=== PATIENT | female | born 1935 | race Caucasian/White ===

== ENCOUNTER 2022-08-30 05:55 | Emergency (ER) | payer MEDICARE, OTHER ==
[~2022-08-30] VITALS: Ht 165.1 cm; Wt 58.0 kg
--- NOTE | 2022-08-30 06:11 | ED General ---
General Stated Complaint: LEFT SIDE ML,NECK PAIN Source of Information: Patient (PT IS POOR HISTORIAN ESPECIALLY ABOUT PAST MEDICAL HISTORY) History of Present Illness Date Seen by Provider: Aug 30, 2022 Time Seen by Provider: 05:58 Initial Comments PT ARRIVES VIA EMS FROM [facility] PT'S MAIN COMPLAINT IS SHORTNESS OF BREATH, SHE IS NOT SURE HOW LONG IT HAS BEEN GOING ON, BUT STATES SHE DID NOT HAVE IT WHEN SHE WENT TO BED LAST NIGHT EMS REPORT THAT THEY WERE CALLED FOR PT WITH C/O TINGLING IN LEFT ARM SINCE WAKING AROUND 0430--PT DENIES THIS NOW. SHE DENIES ANY NUMBNESS OR TINGLING ANYWHERE, AND SHE DENIES ANY WEAKNESS TO HER ARMS OR LEGS. PT DENIES PAIN ANYWHERE SHE DENIES CHEST PAIN SHE DENIES HEADACHE SHE DENIES DIZZINESS SHE DENIES NAUSEA/VOMITING OR ABDOMINAL PAIN SHE DENIES SWELLING IN LEGS/FEET SHE DENIES COUGH SHE DENIES SWEATS OR CHILLS PT KNOWS SHE IS IN [place], KNOWS SHE IS IN A HOSPITAL, AND STATES THEY BROUGHT HER HERE BECAUSE SHE IS SHORT OF BREATH SHE HAS POOR MEMORY, AND DOES NOT KNOW DAY/MONTH/YEAR/SEASON/HOLIDAY. SHE DOES KNOW HER AGE AND . PT STATES SHE HAS HAD A "MINOR" STROKE IN THE PAST, BUT DOES NOT KNOW WHEN SHE ALSO STATES SHE HAS HAD BREAST CANCER AND HAD LEFT MASTECTOMY "A LONG TIME AGO" BUT DOES NOT RECALL IF SHE HAD CHEMO OR RADIATION. SHE STATES HER DR. IS DR. YOU[place] IN [place], BUT STATES SHE HASN'T SEEN A DR "IN A LONG TIME". PT DOES NOT KNOW ANY OF HER MEDICAL PROBLEMS OR ANY OF HER MEDICATIONS PER [facility] PAPERS, PT WAS ADMITTED TO [facility] 03/31/2022 HER LISTED DIAGNOSES ARE: -DEMENTIA -HTN -HYPERLIPIDEMIA -CAROTID DISEASE -ASTHMA -ANXIETY -LOW BACK PAIN -COPD -LEG PAIN -OSTEOARTHRITIS -LEFT BREAST REMOVED SHE IS DNR/DNI PCP: DR. HARVEY IS DR AT [facility] Allergies and Home Medications Allergies Coded Allergies: No Known Drug Allergies (Unverified , 08/30/22) Review of Systems Review of Systems Constitutional: no symptoms reported EENTM: no symptoms reported Respiratory: see HPI, short of breath Cardiovascular: no symptoms reported Gastrointestinal: no symptoms reported Genitourinary: no symptoms reported Musculoskeletal: no symptoms reported Skin: no symptoms reported Psychiatric/Neurological: See HPI Hematologic/Lymphatic: No Symptoms Reported Immunological/Allergic: no symptoms reported Past Lgguhel-Mklhul-Rvnfrz Hx Patient Social History Tobacco Use?: Yes Tobacco type used: Cigarettes Smoking Status: Former Smoker Use of E-Cig and/or Vaping dev: No Substance use?: No Alcohol Use?: No Past Medical History Surgeries: Yes (LEFT BREAST REMOVED) Breast Respiratory: Yes Asthma, COPD Cardiac: Yes (CAROTID DISEASE) High Cholesterol, Hypertension Neurological: Yes Dementia, Stroke Genitourinary: No Gastrointestinal: No Musculoskeletal: Yes (CHRONIC LEG PAIN ) Arthritis, Chronic Back Pain Endocrine: No HEENT: Yes Glaucoma Cancer: Yes Breast Did You Recieve Any Treatments: Yes What Type of Treatment Did You: Surgical Intervention PT HAS HAD LEFT MASECTOMY, BUT DOES NOT REMEMBER IF SHE HAS HAD CHEMO OR RADIATION. Psychosocial: Yes Anxiety Integumentary: No Blood Disorders: No Physical Exam Vital Signs Vital Signs - First Documented 08/30/22 05:55 Temp 36.6 Pulse 70 Resp 16 B/P (MAP) 187/100 (129) Pulse Ox 100 O2 Delivery Room Air Capillary Refill : Height, Weight, BMI Height: '" Weight: lbs. oz. kg; BMI Method: General Appearance: WD/WN, Other (PT IS SLIGHTLY DYSPNEIC ON ARRIVAL, BUT ABLE TO TALK IN FULL SENTENCES) Eyes: Bilateral Eye Normal Inspection, Bilateral Eye PERRL, Bilateral Eye EOMI HEENT: PERRL/EOMI, TMs Normal, Normal ENT Inspection, Pharynx Normal, Moist Mucous Membranes Neck: Normal Inspection; No Carotid Bruit, No JVD Respiratory: Normal Breath Sounds, No Accessory Muscle Use, No Respiratory Distress Cardiovascular: Regular Rate, Rhythm, No Edema, No JVD, No Murmur, Normal Peripheral Pulses Gastrointestinal: Normal Bowel Sounds, No Organomegaly, No Pulsatile Mass, Non Tender, Soft Back: No CVA Tenderness Extremity: Normal Capillary Refill, Normal Inspection, Normal Range of Motion, Non Tender, No Calf Tenderness, No Pedal Edema Neurologic/Psychiatric: Alert, No Motor/Sensory Deficits (GROSSLY INTACT. 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 ) Skin: Normal Color, Warm/Dry Focused Exam Lactate Level 08/30/22 06:10: Lactic Acid Level 1.66 Lactic Acid Level Laboratory Tests Test 08/30/22 06:10 Lactic Acid Level 1.66 MMOL/L (0.50-2.00) Progress/Results/Core Measures Suspected Sepsis SIRS Temperature: Pulse: Respiratory Rate: Laboratory Tests 08/30/22 06:10: White Blood Count 6.7 Blood Pressure / Mean: 08/30/22 06:10: Lactic Acid Level 1.66 Laboratory Tests 08/30/22 06:10: Creatinine 0.87, INR Comment 0.9, Platelet Count 235, Total Bilirubin 0.6 Results/Orders Lab Results Laboratory Tests Test 08/30/22 06:10 08/30/22 06:32 08/30/22 09:40 Range/Units White Blood Count 6.7 4.3-11.0 10^3/uL Red Blood Count 4.36 3.80-5.11 10^6/uL Hemoglobin 13.9 11.5-16.0 g/dL Hematocrit 41 35-52 % Mean Corpuscular Volume 95 80-99 fL Mean Corpuscular Hemoglobin 32 25-34 pg Mean Corpuscular Hemoglobin Concent 34 32-36 g/dL Red Cell Distribution Width 12.4 10.0-14.5 % Platelet Count 235 130-400 10^3/uL Mean Platelet Volume 11.2 9.0-12.2 fL Immature Granulocyte % (Auto) 0 % Neutrophils (%) (Auto) 58 42-75 % Lymphocytes (%) (Auto) 31 12-44 % Monocytes (%) (Auto) 8 0-12 % Eosinophils (%) (Auto) 3 0-10 % Basophils (%) (Auto) 1 0-10 % Neutrophils # (Auto) 3.9 1.8-7.8 10^3/uL Lymphocytes # (Auto) 2.1 1.0-4.0 10^3/uL Monocytes # (Auto) 0.5 0.0-1.0 10^3/uL Eosinophils # (Auto) 0.2 0.0-0.3 10^3/uL Basophils # (Auto) 0.0 0.0-0.1 10^3/uL Immature Granulocyte # (Auto) 0.0 0.0-0.1 10^3/uL Erythrocyte Sedimentation Rate 9 0-30 MM/HR Prothrombin Time 12.1 L 12.2-14.7 SEC INR Comment 0.9 0.8-1.4 Activated Partial Thromboplast Time 33 24-35 SEC D-Dimer 0.98 H 0.00-0.49 UG/ML Sodium Level 141 135-145 MMOL/L Potassium Level 4.0 3.6-5.0 MMOL/L Chloride Level 104 98-107 MMOL/L Carbon Dioxide Level 24 21-32 MMOL/L Anion Gap 13 5-14 MMOL/L Blood Urea Nitrogen 13 7-18 MG/DL Creatinine 0.87 0.60-1.30 MG/DL Estimat Glomerular Filtration Rate 65 BUN/Creatinine Ratio 15 Glucose Level 110 H 70-105 MG/DL Lactic Acid Level 1.66 0.50-2.00 MMOL/L Calcium Level 9.4 8.5-10.1 MG/DL Corrected Calcium 9.4 8.5-10.1 MG/DL Magnesium Level 1.7 1.6-2.4 MG/DL Total Bilirubin 0.6 0.1-1.0 MG/DL Aspartate Amino Transf (AST/SGOT) 27 5-34 U/L Alanine Aminotransferase (ALT/SGPT) 18 0-55 U/L Alkaline Phosphatase 60 40-136 U/L Total Creatine Kinase 47 29-168 U/L Creatine Kinase MB 1.0 <6.6 NG/ML Troponin I < 0.028 < 0.028 <0.028 NG/ML C-Reactive Protein High Sensitivity 0.18 0.00-0.50 MG/DL B-Type Natriuretic Peptide 32.9 <100.0 PG/ML Total Protein 7.4 6.4-8.2 GM/DL Albumin 4.0 3.2-4.5 GM/DL Influenza Type A (RT-PCR) Not Detected Not Detecte Influenza Type B (RT-PCR) Not Detected Not Detecte SARS-CoV-2 RNA (RT-PCR) Not Detected Not Detecte Urine Color YELLOW Urine Clarity CLEAR Urine pH 8.0 5-9 Urine Specific [place] 1.010 L 1.016-1.022 Urine Protein NEGATIVE NEGATIVE Urine Glucose (UA) NEGATIVE NEGATIVE Urine Ketones NEGATIVE NEGATIVE Urine Nitrite NEGATIVE NEGATIVE Urine Bilirubin NEGATIVE NEGATIVE Urine Urobilinogen 0.2 < = 1.0 MG/DL Urine Leukocyte Esterase 1+ H NEGATIVE Urine RBC (Auto) NEGATIVE NEGATIVE Urine RBC NONE /HPF Urine WBC 2-5 /HPF Urine Squamous Epithelial Cells NONE /HPF Urine Crystals NONE /LPF Urine Bacteria NEGATIVE /HPF Urine Casts NONE /LPF Urine Mucus NEGATIVE /LPF Urine Culture Indicated NO My Orders Orders - SHAW LEWIS DO Ed Iv/Invasive Line Start (08/30/22 06:02) Ekg Tracing (08/30/22 06:02) O2 (08/30/22 06:02) Monitor-Rhythm Ecg Trace Only (08/30/22 06:02) Ct Head Wo-R/O Stroke (08/30/22 06:02) Chest 1 View, Ap/Pa Only (08/30/22 06:02) Bnp Carmella (08/30/22 06:02) Cbc With Automated Diff (08/30/22 06:02) Comprehensive Metabolic Panel (08/30/22 06:02) Creatine Kinase (08/30/22 06:02) Creatine Kinase Mb (08/30/22 06:02) Hs C Reactive Protein (08/30/22 06:02) Fibrin Degradation Products (08/30/22 06:02) Lactic Acid Analyzer (08/30/22 06:02) Magnesium (08/30/22 06:02) Protime With Inr (08/30/22 06:02) Partial Thromboplastin Time (08/30/22 06:02) Erythrocyte Sedimentation Rate (08/30/22 06:02) Troponin I Carmella (08/30/22 06:02) Covid 19 Inhouse Test (08/30/22 06:02) Influenza A And B By Pcr (08/30/22 06:02) Isolation Central Supply Req (08/30/22 06:02) Ua Culture If Indicated (08/30/22 06:16) Ct Angio Chest W (R/O Pe) (08/30/22 06:59) Iohexol Injection (Omnipaque 350 Mg/Ml 1 (08/30/22 07:15) Received Contrast (Hold Metformin- Contr (08/30/22 07:15) Ns (Ivpb) (Sodium Chloride 0.9% Ivpb Bag (08/30/22 07:15) Nitroglycerin Ointment (Nitrobid Ointme (08/30/22 07:45) Acetaminophen Tablet (Tylenol Tablet) (08/30/22 08:15) Ekg Tracing (08/30/22 08:58) Troponin I Carmella (08/30/22 08:58) Medications Given in ED Current Medications Medications Dose Ordered Sig/Radha Route Start Time Stop Time Status Last Admin Dose Admin Acetaminophen 1,000 mg ONCE ONCE PO 08/30/22 08:15 08/30/22 08:16 DC 08/30/22 08:34 1,000 MG Iohexol 100 ml ONCE ONCE IV 08/30/22 07:15 08/30/22 07:16 DC 08/30/22 07:32 59 ML Nitroglycerin 1 inch ONCE ONCE TOP 08/30/22 07:45 08/30/22 07:46 DC 08/30/22 08:04 0.5 INCH Sodium Chloride 100 ml ONCE ONCE IV 08/30/22 07:15 08/30/22 07:16 DC 08/30/22 07:32 80 ML Vital Signs/I&O 08/30/22 08/30/22 05:55 05:55 Temp 36.6 Pulse 70 Resp 16 B/P (MAP) 187/100 (129) Pulse Ox 100 O2 Delivery Room Air Room Air Capillary Refill : Progress Note : Progress Note PPE WORN COVID AND FLU TESTING DONE. O2 SAT 100% ON ROOM AIR BP ELEVATED ON ARRIVAL, AND REMAINED ELEVATED--IS NOT KNOW IF PT HAS RECEIVED HER MORNING MEDICATIONS OR NOT NITROPASTE APPLIED. THERE IS NO EVIDENCE OF STROKE AND PT IS NOT VOICING ANY NEUROLOGICAL COMPLAINTS SHE DOES NOT COMPLAIN OF SHORTNESS OF BREATH FOR REMAINDER OF ER STAY THERE ARE NO PRIOR VISITS HERE, REVIEWED [facility] PAPERS--THERE IS ONLY A LIST OF MEDICATIONS, NO H&P OR LIST OF DIAGNOSES 0800--DAUGHTER IS HERE WITH PT, SHE STATES THAT PT IS COMPLAINING OF HER LEGS HURTING--THIS IS A CHRONIC PROBLEM. TYLENOL ORDERED. PT HAS NOT VOICED THIS COMPLAINT AT ANY TIME TO ANY ER STAFF. DAUGHTER ALSO STATES THAT PT ALWAYS HAS ALOT OF ANXIETY. ECG Initial ECG Impression Date: Aug 30, 2022 Initial ECG Impression Time: 06:01 Initial ECG Rate: 67 Initial ECG Rhythm: Normal Sinus Initial ECG Impression: Normal Initial ECG Comparisson: No Previous ECG Available Comment INTERPRETED BY ME EKG : EKG Time: 09:23 Rate: 58 Rhythm: Normal Sinus ECG Comparisson: Unchanged Diagnostic Imaging Comments CT HEAD--PER RADIOLOGIST REPORT AT 0649 FINDINGS: There is no intracranial hemorrhage, hydrocephalus, cerebral edema, mass, mass effect nor evidence for elevated intracranial pressures. Cerebral cortical volume unremarkable for age. There are mild periventricular white matter changes unremarkable for age is intracranial atherosclerotic vascular calcifications chronic. IMPRESSION: Mild chronic senescent changes. No hemorrhage or acute-appearing abnormality.` CXR--PER RADIOLOGIST REPORT AT 0657 FINDINGS: No focal consolidation, failure, effusion or pneumothorax. IMPRESSION: No acute appearing abnormality. CT CHEST ANGIOGRAM--PER RADIOLOGIST REPORT AT 0747 Findings: There is a substantial degree of respiratory motion artifact particularly at the level of the lower 3rd of the chest. The undivided pulmonary segment of the left and right main pulmonary arteries widely patent. The proximal bilateral upper and lower lobe arterial branches widely patent. Lower lobe branches of the segmental and subsegmental levels and beyond are significantly degraded by motion. No identified PE. The atherosclerotic aorta is nonaneurysmal. There is no pleural or pericardial effusion. There is coronary artery atherosclerotic vascular calcifications but no lung mass or suspicious consolidation. No findings of edema. Impression: There is a small hiatal hernia. The upper abdomen appeared nonacute. Impression: Limited by respiratory motion, no appreciable PE or acute abnormalities identified. Reviewed: Reviewed by Me Departure Impression Primary Impression: Dyspnea Additional Impressions: HTN (hypertension) Dementia Disposition: 03 XF SNF Condition: Improved Departure-Patient Inst. Decision time for Depature: 10:38 Referrals: ROSS HARVEY MD UNKNOWN (PCP) Primary Care Physician Patient Instructions: High Blood Pressure (DC) Add. Discharge Instructions: CONTINUE YOUR REGULAR MEDICATIONS PRESCRIBED FOLLOW UP WITH DR. HARVEY NEEDED SHAW LEWIS DO Aug 30, 2022 06:11
[2022-08-30 06:33] LABS: BASOPHILS % (AUTO) 1 % (0-10); EOSINOPHILS # (AUTO) 0.2 10^3/uL (0.0-0.3); EOSINOPHILS % (AUTO) 3 % (0-10); HEMATOCRIT 41 % (35-52); HEMOGLOBIN 13.9 g/dL (11.5-16.0); LYMPHOCYTES # (AUTO) 2.1 10^3/uL (1.0-4.0); LYMPHOCYTES % (AUTO) 31 % (12-44); MEAN CORPUSCULAR HEMOGLOBIN 32 pg (25-34); MEAN CORPUSCULAR HGB CONC 34 g/dL (32-36); MEAN CORPUSCULAR VOLUME 95 fL (80-99); MEAN PLATELET VOLUME 11.2 fL (9.0-12.2); MONOCYTES # (AUTO) 0.5 10^3/uL (0.0-1.0); MONOCYTES % (AUTO) 8 % (0-12); NEUTROPHILS # (AUTO) 3.9 10^3/uL (1.8-7.8); NEUTROPHILS % (AUTO) 58 % (42-75); PLATELET COUNT 235 10^3/uL (130-400); WHITE BLOOD COUNT 6.7 10^3/uL (4.3-11.0)
[2022-08-30 06:38] LABS: CHLORIDE 104 MMOL/L (98-107); SODIUM 141 MMOL/L (135-145)
[2022-08-30 06:39] LABS: CALCIUM 9.4 MG/DL (8.5-10.1)
[2022-08-30 06:40] LABS: FIBRIN DEGRADATION PRODUCTS 0.98 UG/ML (0.00-0.49); GLUCOSE 110 MG/DL (70-105); INR 0.9 (0.8-1.4); PROTHROMBIN TIME PATIENT 12.1 SEC (12.2-14.7); TOTAL PROTEIN 7.4 GM/DL (6.4-8.2)
[2022-08-30 06:41] LABS: CARBON DIOXIDE 24 MMOL/L (21-32)
[2022-08-30 06:41] LABS: BILIRUBIN,URINE NEGATIVE (NEGATIVE); CLARITY,URINE CLEAR; COLOR,URINE YELLOW; GLUCOSE, URINE (UA) NEGATIVE (NEGATIVE); KETONES,URINE NEGATIVE (NEGATIVE); LEUKOCYTE ESTERASE ,URINE 1+ (NEGATIVE); NITRITE,URINE NEGATIVE (NEGATIVE); PROTEIN,URINE NEGATIVE (NEGATIVE)
[2022-08-30 06:42] LABS: BILIRUBIN,TOTAL 0.6 MG/DL (0.1-1.0)
[2022-08-30 06:44] LABS: ALKALINE PHOSPHATASE 60 U/L (40-136); CREATININE SERUM 0.87 MG/DL (0.60-1.30); GFR ESTIMATED 65
--- NOTE | 2022-08-30 06:44 | Diagnostic Imaging Report ---
PROCEDURE: CT head wo r/o stroke. TECHNIQUE: Multiple contiguous axial images were obtained through the brain without the use of intravenous contrast. Auto Exposure Controls were utilized during the CT exam to meet ALARA standards for radiation dose reduction. INDICATION: Left sided tingling. FINDINGS: There is no intracranial hemorrhage, hydrocephalus, cerebral edema, mass, mass effect nor evidence for elevated intracranial pressures. Cerebral cortical volume unremarkable for age. There are mild periventricular white matter changes unremarkable for age is intracranial atherosclerotic vascular calcifications chronic. IMPRESSION: Mild chronic senescent changes. No hemorrhage or acute-appearing abnormality.` Dictated by: Dictated on workstation # [id number]
[2022-08-30 06:45] LABS: BUN/CREATININE RATIO 15
[2022-08-30 06:47] LABS: ALANINE AMINOTRANSFERASE 18 U/L (0-55); MAGNESIUM 1.7 MG/DL (1.6-2.4)
[2022-08-30 06:48] LABS: CREATINE KINASE 47 U/L (29-168)
--- NOTE | 2022-08-30 06:50 | Diagnostic Imaging Report ---
INDICATION: Tingling FINDINGS: No focal consolidation, failure, effusion or pneumothorax. IMPRESSION: No acute appearing abnormality. Dictated by: Dictated on workstation # [id number]
[2022-08-30 07:03] LABS: BACTERIA,URINE NEGATIVE /HPF
[2022-08-30] MEDS ORDERED: NS 100 ML (IVPB) BAG IV ONE (07:15)
[2022-08-30] MEDS ORDERED: IOHEXOL 350 MG/ML 100 ML (OMNIPAQUE 350) VIAL IV ONE (07:15)
[2022-08-30] MEDS ORDERED: HOLD METFORMIN - RECEIVED CONTRAST 20 ML VIAL IV SCH (07:15)
--- NOTE | 2022-08-30 07:43 | Diagnostic Imaging Report ---
Indication: Shortness of breath, elevated D-dimer. No priors. Findings: There is a substantial degree of respiratory motion artifact particularly at the level of the lower 3rd of the chest. The undivided pulmonary segment of the left and right main pulmonary arteries widely patent. The proximal bilateral upper and lower lobe arterial branches widely patent. Lower lobe branches of the segmental and subsegmental levels and beyond are significantly degraded by motion. No identified PE. The atherosclerotic aorta is nonaneurysmal. There is no pleural or pericardial effusion. There is coronary artery atherosclerotic vascular calcifications but no lung mass or suspicious consolidation. No findings of edema. Impression: There is a small hiatal hernia. The upper abdomen appeared nonacute. Impression: Limited by respiratory motion, no appreciable PE or acute abnormalities identified. Dictated by: Dictated on workstation # [id number]
[2022-08-30] MEDS ORDERED: NITROGLYCERIN 2% OINT 1 GM UNIT DOSE PACKET TOP ONE (07:45)
[2022-08-30 07:47] LABS: ERYTHROCYTE SEDIMENTATION RATE 9 MM/HR (0-30)
[2022-08-30] MEDS ORDERED: ACETAMINOPHEN 500 MG TAB (TYLENOL) PO ONE (08:15)
[2022-08-30 10:51] VITALS: BP 173/95
== END 2022-08-30 10:51 ==
LOC: ER 06:02
DX: R06.00 Dyspnea, unspecified (principal); I10 Essential (primary) hypertension; F03.90 Unspecified dementia, unspecified severity, without behavioral disturbance, psychotic disturbance, mood disturbance, and anxiety; Z87.891 Personal history of nicotine dependence; Z20.822 Contact with and (suspected) exposure to COVID-19; Z87.09 Personal history of other diseases of the respiratory system
CPT/HCPCS: 36415; 70450; 71045; 71275; 80053; 81000; 82550; 82553; 83605; 83735; 83880; 84484; 85025; 85379; 85610; 85652; 85730; 86141; 87636; 93005; 93041

== ENCOUNTER 2022-09-27 01:06 | Emergency (ER) | payer MEDICARE ==
[2022-09-27] MEDS ORDERED: NITROGLYCERIN 2% OINT 1 GM UNIT DOSE PACKET TOP STA (01:15)
[2022-09-27 01:22] LABS: BASOPHILS % (AUTO) 1 % (0-10); EOSINOPHILS # (AUTO) 0.1 10^3/uL (0.0-0.3); EOSINOPHILS % (AUTO) 2 % (0-10); HEMATOCRIT 39 % (35-52); LYMPHOCYTES % (AUTO) 29 % (12-44); MEAN CORPUSCULAR HEMOGLOBIN 32 pg (25-34); MEAN CORPUSCULAR HGB CONC 33 g/dL (32-36); MEAN CORPUSCULAR VOLUME 96 fL (80-99); MEAN PLATELET VOLUME 10.8 fL (9.0-12.2); MONOCYTES # (AUTO) 0.5 10^3/uL (0.0-1.0); MONOCYTES % (AUTO) 7 % (0-12); NEUTROPHILS # (AUTO) 4.3 10^3/uL (1.8-7.8); NEUTROPHILS % (AUTO) 62 % (42-75); PLATELET COUNT 200 10^3/uL (130-400)
[2022-09-27] MEDS ORDERED: NITROGLYCERIN 2% OINT 1 GM UNIT DOSE PACKET TOP ONE (01:30)
[2022-09-27 01:31] LABS: INR 0.9 (0.8-1.4); PROTHROMBIN TIME PATIENT 12.3 SEC (12.2-14.7)
[2022-09-27 01:32] LABS: POTASSIUM 3.5 MMOL/L (3.6-5.0)
[2022-09-27 01:33] LABS: CALCIUM 9.2 MG/DL (8.5-10.1)
[2022-09-27 01:34] LABS: TOTAL PROTEIN 6.9 GM/DL (6.4-8.2)
[2022-09-27 01:36] LABS: BILIRUBIN,TOTAL 0.4 MG/DL (0.1-1.0)
[2022-09-27 01:38] LABS: CREATININE SERUM 0.82 MG/DL (0.60-1.30)
[2022-09-27 01:41] LABS: MAGNESIUM 1.8 MG/DL (1.6-2.4)
[2022-09-27 01:49] LABS: CREATINE KINASE MB 0.7 NG/ML (<6.6)
--- NOTE | 2022-09-27 02:45 | ED Chest Pain ---
General Chief Complaint: Chest Pain Stated Complaint: CP Nursing Triage Note: TO ED [facility] FROM [facility] WITH C/O CHEST PRESSURE. PT HAS HX DEMENTIA AND IS A POOR HISTORIAN, UNABLE TO PROVIDE WHEN CP STARTED OR WHAT SHE WAS DOING WHEN IT STARTED. PT ASKED EMS TWICE DURING THEIR REPORT AND TRANSITION OF PT TO ER BED WHERE HER PURSE WAS. PT DID NOT ARRIVE WITH ANY BELONGINGS. EMS STATED SHE ASKED THEM AT LEAST 4 TIMES WHERE HER PURSE WAS. PER EMS PT PURSE WAS LEFT AT FACILITY. Source: EMS, prison records, old records Exam Limitations: other (DEMENTIA) History of Present Illness Date Seen by Provider: Sep 27, 2022 Time Seen by Provider: 01:15 Initial Comments PT ARRIVES VIA EMS [facility] STATES THEY WERE CALLED FOR PT WITH CHEST PAIN EMS GAVE 324 MG ASPIRIN ON ARRIVAL, PT STATES "I DON'T KNOW" TO MOST QUESTIONS--PT WITH DEMENTIA AND IS AN EXTREMELY POOR HISTORIAN, AND UNABLE TO GIVE ANY HISTORY AT ALL. SHE SPECIFICALLY STATES "NO" ON WHETHER SHE WAS HAVING CHEST PAIN OR PAIN ANYWHERE SHE DOES NOT KNOW WHEN PAIN STARTED, WHAT SHE WAS DOING, OR IF IT WORK HER UP. SHE DID NOT KNOW [facility]. PT WAS SEEN HERE 08/30/22 --HER FIRST VISIT HERE, AND WAS ADMITTED TO [facility] 03/31/22, PER [facility] PAPERWORK Allergies and Home Medications Allergies Coded Allergies: No Known Drug Allergies (Unverified , 08/30/22) Review of Systems Review of Systems Constitutional: see HPI Past Oiersir-Pocdyw-Xaydpc Hx Past Medical History Surgeries: Yes (LEFT BREAST REMOVED) Breast Respiratory: Yes Asthma, COPD Cardiac: Yes (CAROTID DISEASE) High Cholesterol, Hypertension Neurological: Yes Dementia, Stroke Genitourinary: No Gastrointestinal: No Musculoskeletal: Yes (CHRONIC LEG PAIN ) Arthritis, Chronic Back Pain Endocrine: No HEENT: Yes Glaucoma Cancer: Yes Breast Did You Recieve Any Treatments: Yes What Type of Treatment Did You: Surgical Intervention Psychosocial: Yes Anxiety Integumentary: No Blood Disorders: No Physical Exam Vital Signs Vital Signs - First Documented 09/27/22 01:09 Temp 36.0 Pulse 57 Resp 16 B/P (MAP) 182/87 (118) Pulse Ox 94 O2 Delivery Room Air Capillary Refill : Less Than 3 Seconds Height, Weight, BMI Height: '" Weight: lbs. oz. kg; 21.00 BMI Method: General Appearance: No Apparent Distress, WD/WN HEENT: PERRL/EOMI Neck: Normal Inspection Respiratory: Chest Non Tender, Normal Breath Sounds, No Accessory Muscle Use, No Respiratory Distress Cardiovascular: Regular Rate, Rhythm, No JVD, No Murmur, Normal Peripheral Pulses Gastrointestinal: Non Tender, Soft Extremity: Normal Inspection, Normal Range of Motion, Non Tender, No Calf Tenderness, No Pedal Edema Neurologic/Psychiatric: Alert, No Motor/Sensory Deficits, line staker II-XII Norm as Tested, Other (ORIENTED TO SELF, DISORIENTED TO PLACE, TIME, SITUATION AND EXTREMELY POOR MEMORY. FLAT AFFECT. ) Skin: Normal Color, Warm/Dry Progress/Results/Core Measures Results/Orders Lab Results Laboratory Tests Test 09/27/22 01:14 09/27/22 04:19 Range/Units White Blood Count 7.0 4.3-11.0 10^3/uL Red Blood Count 4.08 3.80-5.11 10^6/uL Hemoglobin 13.0 11.5-16.0 g/dL Hematocrit 39 35-52 % Mean Corpuscular Volume 96 80-99 fL Mean Corpuscular Hemoglobin 32 25-34 pg Mean Corpuscular Hemoglobin Concent 33 32-36 g/dL Red Cell Distribution Width 12.4 10.0-14.5 % Platelet Count 200 130-400 10^3/uL Mean Platelet Volume 10.8 9.0-12.2 fL Immature Granulocyte % (Auto) 0 % Neutrophils (%) (Auto) 62 42-75 % Lymphocytes (%) (Auto) 29 12-44 % Monocytes (%) (Auto) 7 0-12 % Eosinophils (%) (Auto) 2 0-10 % Basophils (%) (Auto) 1 0-10 % Neutrophils # (Auto) 4.3 1.8-7.8 10^3/uL Lymphocytes # (Auto) 2.0 1.0-4.0 10^3/uL Monocytes # (Auto) 0.5 0.0-1.0 10^3/uL Eosinophils # (Auto) 0.1 0.0-0.3 10^3/uL Basophils # (Auto) 0.0 0.0-0.1 10^3/uL Immature Granulocyte # (Auto) 0.0 0.0-0.1 10^3/uL Prothrombin Time 12.3 12.2-14.7 SEC INR Comment 0.9 0.8-1.4 Activated Partial Thromboplast Time 32 24-35 SEC D-Dimer 0.78 H 0.00-0.49 UG/ML Sodium Level 139 135-145 MMOL/L Potassium Level 3.5 L 3.6-5.0 MMOL/L Chloride Level 101 98-107 MMOL/L Carbon Dioxide Level 25 21-32 MMOL/L Anion Gap 13 5-14 MMOL/L Blood Urea Nitrogen 12 7-18 MG/DL Creatinine 0.82 0.60-1.30 MG/DL Estimat Glomerular Filtration Rate 70 BUN/Creatinine Ratio 15 Glucose Level 106 H 70-105 MG/DL Calcium Level 9.2 8.5-10.1 MG/DL Corrected Calcium 9.2 8.5-10.1 MG/DL Magnesium Level 1.8 1.6-2.4 MG/DL Total Bilirubin 0.4 0.1-1.0 MG/DL Aspartate Amino Transf (AST/SGOT) 20 5-34 U/L Alanine Aminotransferase (ALT/SGPT) 17 0-55 U/L Alkaline Phosphatase 61 40-136 U/L Total Creatine Kinase 42 29-168 U/L Creatine Kinase MB 0.7 <6.6 NG/ML Myoglobin 37.0 10.0-92.0 NG/ML Troponin I < 0.028 < 0.028 <0.028 NG/ML B-Type Natriuretic Peptide 34.2 <100.0 PG/ML Total Protein 6.9 6.4-8.2 GM/DL Albumin 4.0 3.2-4.5 GM/DL Amylase Level 69 25-125 U/L Lipase 34 8-78 U/L My Orders Orders - SHAW LEWIS DO Cbc With Automated Diff (09/27/22:15) Magnesium (09/27/22:15) Chest 1 View, Ap/Pa Only (09/27/22:15) Ekg Tracing (09/27/22:15) Comprehensive Metabolic Panel (09/27/22:15) Myoglobin Serum (09/27/22:15) Protime With Inr (09/27/22:15) Partial Thromboplastin Time (3/14/23 01:15) O2 (09/27/22 01:15) Monitor-Rhythm Ecg Trace Only (09/27/22 01:15) Ed Iv/Invasive Line Start (09/27/22 01:15) Creatine Kinase (09/27/22 01:15) Creatine Kinase Mb (09/27/22 01:15) Lipase (09/27/22 01:15) Amylase (09/27/22 01:15) Bnp Carmella (09/27/22 01:15) Fibrin Degradation Products (09/27/22 01:15) Troponin I [place] (09/27/22 01:15) Nitroglycerin Ointment (Nitrobid Ointme (09/27/22 01:15) Nitroglycerin Ointment (Nitrobid Ointme (09/27/22 01:30) Acetaminophen Tablet (Tylenol Tablet) (09/27/22 03:30) Hydralazine Injection (Apresoline Inject (09/27/22 03:30) Ekg Tracing (09/27/22 04:04) Troponin I Carmella (09/27/22 04:04) Medications Given in ED Current Medications Medications Dose Ordered Sig/Radha Route Start Time Stop Time Status Last Admin Dose Admin Acetaminophen 1,000 mg ONCE ONCE PO 09/27/22 03:30 09/27/22 03:31 DC 09/27/22 03:26 1,000 MG Hydralazine HCl 10 mg ONCE ONCE IV 09/27/22 03:30 09/27/22 03:31 DC 09/27/22 03:26 10 MG Nitroglycerin 1 inch ONCE ONCE TOP 09/27/22 01:30 09/27/22 01:31 DC 09/27/22 01:50 1 INCH Vital Signs/I&O 09/27/22 09/27/22 01:09 01:09 Temp 36.0 Pulse 57 Resp 16 B/P (MAP) 182/87 (118) Pulse Ox 94 O2 Delivery Room Air Room Air Blood Pressure Mean: 118 Progress Progress Note : Progress Note NITROPASTE APPLIED FOR ELEVATED BP 3 HOUR REPEAT TROPONIN AND EKG ORDERED 0300--DAUGHTER IS HERE, UPDATED ON CONDITION AND PLAN OF CARE. PT WANTS SOMETHING FOR HER BACK--HAS CHRONIC BACK PAIN. NO CHEST PAIN. BP REMAINS ELEVATED--185 SYSTOLIC. WILL ORDER HYDRALAZINE FOR BP AND TYLENOL FOR BACK PAIN . 0412--PT C/O FRONTAL HEADACHE--BP HAS DROPPED TO 90'S SYSTOLIC, NITROPASTE REMOVED. NO C/O CHEST PAIN AT ANY TIME Departure Impression Primary Impression: HTN (hypertension) Additional Impression: Dementia Disposition: 03 XFER SNF Condition: Stable Departure-Patient Inst. Decision time for Depature: 05:37 Referrals: ROSS HARVEY MD (PCP/Family) Primary Care Physician Patient Instructions: High Blood Pressure ED Add. Discharge Instructions: CONTINUE YOUR REGULAR MEDICATIONS PRESCRIBED FOLLOW UP WITH DR. HARVEY FOR FURTHER CARE All discharge instructions reviewed with patient and/or family. Voiced understanding. SHAW LEWIS DO Sep 27, 2022 02:44
[2022-09-27] MEDS ORDERED: hydrALAZINE (APESOLINE) 20 MG/ML VIAL IV ONE (03:30)
[2022-09-27] MEDS ORDERED: ACETAMINOPHEN 500 MG TAB (TYLENOL) PO ONE (03:30)
[2022-09-27 06:02] VITALS: BP 121/50
--- NOTE | 2022-09-27 06:25 | Diagnostic Imaging Report ---
INDICATION: Chest pain. Portable chest 1:25 AM FINDINGS: Heart size and pulmonary vascularity are normal. Lungs are clear. There are no effusions or pneumothoraces. IMPRESSION: No acute abnormalities in the chest. Dictated by: Dictated on workstation # [id number]
== END 2022-09-27 06:02 | disposition home or self-care (01) ==
LOC: EDUNIT# 01:06 → ER 01:07
DX: I10 Essential (primary) hypertension (principal); F03.90 Unspecified dementia, unspecified severity, without behavioral disturbance, psychotic disturbance, mood disturbance, and anxiety
CPT/HCPCS: 36415; 71045; 80053; 82150; 82550; 82553; 83690; 83735; 83874; 83880; 84484; 85025; 85379; 85610; 85730; 93005; 93041

== ENCOUNTER → 2023-03-31 | Outpatient (CLI) | payer MEDICARE ==
[2023-03-31 12:18] LABS: BASOPHILS # (AUTO) 0.1 10^3/uL (0.0-0.1); BASOPHILS % (AUTO) 1 % (0-10); EOSINOPHILS # (AUTO) 0.1 10^3/uL (0.0-0.3); EOSINOPHILS % (AUTO) 1 % (0-10); HEMATOCRIT 38 % (35-52); LYMPHOCYTES % (AUTO) 20 % (12-44); MEAN CORPUSCULAR HEMOGLOBIN 33 pg (25-34); MEAN CORPUSCULAR HGB CONC 35 g/dL (32-36); MEAN CORPUSCULAR VOLUME 94 fL (80-99); MEAN PLATELET VOLUME 10.2 fL (9.0-12.2); MONOCYTES % (AUTO) 10 % (0-12); NEUTROPHILS # (AUTO) 6.7 10^3/uL (1.8-7.8); NEUTROPHILS % (AUTO) 69 % (42-75); PLATELET COUNT 257 10^3/uL (130-400); WHITE BLOOD COUNT 9.8 10^3/uL (4.3-11.0)
[2023-03-31 12:24] LABS: BILIRUBIN,URINE NEGATIVE (NEGATIVE); CLARITY,URINE CLEAR; COLOR,URINE YELLOW; GLUCOSE, URINE (UA) NEGATIVE (NEGATIVE); KETONES,URINE NEGATIVE (NEGATIVE); LEUKOCYTE ESTERASE ,URINE 1+ (NEGATIVE); NITRITE,URINE NEGATIVE (NEGATIVE); PROTEIN,URINE NEGATIVE (NEGATIVE)
[2023-03-31 12:25] LABS: BACTERIA,URINE TRACE /HPF
[2023-03-31 12:35] LABS: ALANINE AMINOTRANSFERASE 18 U/L (0-55); ALBUMIN 4.2 GM/DL (3.2-4.5); ALKALINE PHOSPHATASE 63 U/L (40-136); BILIRUBIN,TOTAL 0.5 MG/DL (0.1-1.0); BUN/CREATININE RATIO 13; CALCIUM 9.4 MG/DL (8.5-10.1); CARBON DIOXIDE 26 MMOL/L (21-32); CHLORIDE 98 MMOL/L (98-107); CREATINE KINASE 52 U/L (29-168); CREATININE SERUM 0.83 MG/DL (0.60-1.30); GFR ESTIMATED 69; GLUCOSE 87 MG/DL (70-105); POTASSIUM 3.6 MMOL/L (3.6-5.0); SODIUM 133 MMOL/L (135-145)
--- NOTE | 2023-03-31 13:16 | Diagnostic Imaging Report ---
EXAMINATION: CHEST (PA AND LATERAL) CLINICAL INDICATION: 87-year-old female, chest pain. COMPARISON: Chest radiograph September 27, 2022. FINDINGS: Heart size and mediastinal contours are unremarkable. There is no identified pneumothorax. There is no pleural effusion. There is no identified focal airspace consolidation. There is chronic appearing deformity of the left proximal humerus. IMPRESSION: . 1. No identified acute cardiopulmonary abnormality. Dictated by: Dictated on workstation # [id number]
== END ==
LOC: CARD 11:54
PROVIDERS: ATTEND Physician Assistant
DX: R07.9 Chest pain, unspecified (principal); R53.81 Other malaise
CPT/HCPCS: 36415; 71046; 80053; 81000; 82550; 83874; 84443; 84484; 85025; 87088; 93005

== ENCOUNTER 2023-05-26 21:45 | Inpatient (IN) | payer MEDICARE ==
[~2023-05-26] VITALS: Ht 165 cm; Wt 71.9 kg
--- NOTE | 2023-05-26 21:55 | ED General ---
General Stated Complaint: HEADACHE Source of Information: EMS Exam Limitations: Other (PT WITH DEMENTIA, UNABLE TO GIVE ANY INFORMATION) History of Present Illness Date Seen by Provider: May 26, 2023 Time Seen by Provider: 21:47 Initial Comments PT ARRIVES VIA EMS FROM [facility] REPORTS THEY WERE CALLED FOR PT C/O HEADACHE AND ELEVATED BLOOD PRESSURE BP 227/87, PER EMS ON ARRIVAL, PT IS SMILING AND IS PLEASANTLY CONFUSED, AND DENIES HEADACHE OR PAIN ANYWHERE PT DOES NOT KNOW WHERE SHE IS OR WHY SHE IS HERE SHE STATES SHE FEELS FINE. NO OTHER INFORMATION IS OBTAINABLE AT THIS TIME PT IS DNR/DNI PER [facility] PCP: DR. HARVEY / DR. 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 oz. kg; 21.00 BMI Method: General Appearance: No Apparent Distress, WD/WN, Other (SMILING, PLEASANTLY CONFUSED) HEENT: PERRL/EOMI Neck: Normal Inspection Respiratory: Normal Breath Sounds, No Accessory Muscle Use, No Respiratory Distress Cardiovascular: No JVD, Irregularly Irregular Gastrointestinal: Non Tender, Soft Extremity: Normal Capillary Refill, Normal Inspection, No Pedal Edema Neurologic/Psychiatric: Alert, No Motor/Sensory Deficits, electrician second II-XII Norm as Tested, Other (ORIENTED TO PERSON ONLY) Skin: Normal Color, Warm/Dry Progress/Results/Core Measures Suspected Sepsis SIRS Temperature: Pulse: Respiratory Rate: Laboratory Tests 05/26/23 22:34: White Blood Count 10.6 Blood Pressure / Mean: Laboratory Tests 05/26/23 22:34: Creatinine 0.88, INR Comment 0.9, Platelet Count 239, Total Bilirubin 0.3 Results/Orders Lab Results Laboratory Tests Test 05/26/23 22:34 05/26/23 22:40 Range/Units White Blood Count 10.6 4.3-11.0 10^3/uL Red Blood Count 3.71 L 3.80-5.11 10^6/uL Hemoglobin 12.0 11.5-16.0 g/dL Hematocrit 36 35-52 % Mean Corpuscular Volume 96 80-99 fL Mean Corpuscular Hemoglobin 32 25-34 pg Mean Corpuscular Hemoglobin Concent 34 32-36 g/dL Red Cell Distribution Width 12.8 10.0-14.5 % Platelet Count 239 130-400 10^3/uL Mean Platelet Volume 10.5 9.0-12.2 fL Immature Granulocyte % (Auto) 0 % Neutrophils (%) (Auto) 60 42-75 % Lymphocytes (%) (Auto) 28 12-44 % Monocytes (%) (Auto) 9 0-12 % Eosinophils (%) (Auto) 2 0-10 % Basophils (%) (Auto) 1 0-10 % Neutrophils # (Auto) 6.3 1.8-7.8 10^3/uL Lymphocytes # (Auto) 3.0 1.0-4.0 10^3/uL Monocytes # (Auto) 0.9 0.0-1.0 10^3/uL Eosinophils # (Auto) 0.2 0.0-0.3 10^3/uL Basophils # (Auto) 0.1 0.0-0.1 10^3/uL Immature Granulocyte # (Auto) 0.0 0.0-0.1 10^3/uL Erythrocyte Sedimentation Rate 11 0-30 MM/HR Prothrombin Time 12.2 12.2-14.7 SEC INR Comment 0.9 0.8-1.4 Activated Partial Thromboplast Time 32 24-35 SEC Sodium Level 137 135-145 MMOL/L Potassium Level 3.7 3.6-5.0 MMOL/L Chloride Level 100 98-107 MMOL/L Carbon Dioxide Level 27 21-32 MMOL/L Anion Gap 10 5-14 MMOL/L Blood Urea Nitrogen 16 7-18 MG/DL Creatinine 0.88 0.60-1.30 MG/DL Estimat Glomerular Filtration Rate 64 BUN/Creatinine Ratio 18 Glucose Level 123 H 70-105 MG/DL Calcium Level 9.2 8.5-10.1 MG/DL Corrected Calcium 9.3 8.5-10.1 MG/DL Magnesium Level 1.7 1.6-2.4 MG/DL Total Bilirubin 0.3 0.1-1.0 MG/DL Aspartate Amino Transf (AST/SGOT) 23 5-34 U/L Alanine Aminotransferase (ALT/SGPT) 21 0-55 U/L Alkaline Phosphatase 64 40-136 U/L C-Reactive Protein High Sensitivity 0.63 H 0.00-0.50 MG/DL Total Protein 6.8 6.4-8.2 GM/DL Albumin 3.9 3.2-4.5 GM/DL Urine Color YELLOW Urine Clarity CLEAR Urine pH 7.0 5-9 Urine Specific [place] 1.010 L 1.016-1.022 Urine Protein NEGATIVE NEGATIVE Urine Glucose (UA) NEGATIVE NEGATIVE Urine Ketones NEGATIVE NEGATIVE Urine Nitrite NEGATIVE NEGATIVE Urine Bilirubin NEGATIVE NEGATIVE Urine Urobilinogen 0.2 < = 1.0 MG/DL Urine Leukocyte Esterase 1+ H NEGATIVE Urine RBC (Auto) NEGATIVE NEGATIVE Urine RBC NONE /HPF Urine WBC 5-10 H /HPF Urine Squamous Epithelial Cells RARE /HPF Urine Crystals NONE /LPF Urine Bacteria FEW H /HPF Urine Casts NONE /LPF Urine Mucus NEGATIVE /LPF Urine Culture Indicated YES My Orders Orders - SHAW LEWIS DO Ed Iv/Invasive Line Start (05/26/23 21:49) Ekg Tracing (05/26/23 21:49) Monitor-Rhythm Ecg Trace Only (05/26/23 21:49) Straight Cath For Spec.-Adult (05/26/23 21:49) Ct Head Wo-R/O Stroke (05/26/23 21:49) Chest 1 View, Ap/Pa Only (05/26/23 21:49) Cbc And Automated Diff (05/26/23 21:49) Comprehensive Metabolic Panel (05/26/23 21:49) Hs C Reactive Protein (05/26/23 21:49) Magnesium (05/26/23 21:49) Protime With Inr (05/26/23 21:49) Partial Thromboplastin Time (05/26/23 21:49) Ua Culture If Indicated (05/26/23 21:49) Erythrocyte Sedimentation Rate (05/26/23 21:49) Urine Culture (05/26/23 22:40) Ceftriaxone Iv/Im (Ceftriaxone Iv/Im) (05/26/23 23:01) Hydralazine Injection (Hydralazine Injec (05/26/23 23:15) Ekg Tracing (05/26/23 23:32) Medications Given in ED Current Medications Medications Dose Ordered Sig/Radha Route Start Time Stop Time Status Last Admin Dose Admin Hydralazine HCl 10 mg ONCE ONCE IV 05/26/23 23:15 05/26/23 23:16 DC 05/26/23 23:16 10 MG Vital Signs/I&O 05/26/23 21:50 Temp 36.8 Pulse 65 Resp 16 B/P (MAP) 213/86 (128) Capillary Refill : Departure Impression Primary Impression: HTN (hypertension) Additional Impressions: Second degree heart block UTI (urinary tract infection) Dementia Departure-Patient Inst. Referrals: ROSS HARVEY MD (PCP/Family) Primary Care Physician SHAW LEWIS DO May 26, 2023 21:55
[2023-05-26 22:39] LABS: BASOPHILS # (AUTO) 0.1 10^3/uL (0.0-0.1); BASOPHILS % (AUTO) 1 % (0-10); EOSINOPHILS # (AUTO) 0.2 10^3/uL (0.0-0.3); EOSINOPHILS % (AUTO) 2 % (0-10); HEMATOCRIT 36 % (35-52); LYMPHOCYTES % (AUTO) 28 % (12-44); MEAN CORPUSCULAR HEMOGLOBIN 32 pg (25-34); MEAN CORPUSCULAR HGB CONC 34 g/dL (32-36); MEAN CORPUSCULAR VOLUME 96 fL (80-99); MEAN PLATELET VOLUME 10.5 fL (9.0-12.2); MONOCYTES # (AUTO) 0.9 10^3/uL (0.0-1.0); MONOCYTES % (AUTO) 9 % (0-12); NEUTROPHILS # (AUTO) 6.3 10^3/uL (1.8-7.8); NEUTROPHILS % (AUTO) 60 % (42-75); PLATELET COUNT 239 10^3/uL (130-400); WHITE BLOOD COUNT 10.6 10^3/uL (4.3-11.0)
[2023-05-26 22:56] LABS: INR 0.9 (0.8-1.4); PROTHROMBIN TIME PATIENT 12.2 SEC (12.2-14.7)
[2023-05-26 22:58] LABS: ERYTHROCYTE SEDIMENTATION RATE 11 MM/HR (0-30)
[2023-05-26 22:59] LABS: ALBUMIN 3.9 GM/DL (3.2-4.5); BILIRUBIN,TOTAL 0.3 MG/DL (0.1-1.0); CALCIUM 9.2 MG/DL (8.5-10.1); CREATININE SERUM 0.88 MG/DL (0.60-1.30); MAGNESIUM 1.7 MG/DL (1.6-2.4); POTASSIUM 3.7 MMOL/L (3.6-5.0); TOTAL PROTEIN 6.8 GM/DL (6.4-8.2)
[2023-05-26 23:01] LABS: BACTERIA,URINE FEW /HPF; BILIRUBIN,URINE NEGATIVE (NEGATIVE); CLARITY,URINE CLEAR; COLOR,URINE YELLOW; GLUCOSE, URINE (UA) NEGATIVE (NEGATIVE); KETONES,URINE NEGATIVE (NEGATIVE); LEUKOCYTE ESTERASE ,URINE 1+ (NEGATIVE); NITRITE,URINE NEGATIVE (NEGATIVE); PROTEIN,URINE NEGATIVE (NEGATIVE); SQUAMOUS EPITHELIAL CELL,UR RARE /HPF
[2023-05-26] MEDS ORDERED: cefTRIAXone IV/IM 1,000 MG in NS (IVPB) 50 ML 50 ML IV STA (23:01)
[2023-05-26] MEDS ORDERED: hydrALAZINE INJECTION 20 MG/ML VIAL IV ONE (23:15)
[2023-05-27] MEDS ORDERED: NS IV 500 ML 500 ML IV PRN (02:15)
[2023-05-27] MEDS ORDERED: CATHETER FLUSH 10 ML SYR IVP PRN (02:45)
--- NOTE | 2023-05-27 03:04 | Tele-ICU Progress Note ---
Progress Note 87F with dementia, HTN, HLD, COPD, BRCA s/p L mastectomy, glaucoma admitted with hypertension and bradycardia. Patient was sent from [place] for [place] and BP elevation. She is pleasantly demented and unable to contribute to history. On arrival to ED found to have BP 227/87. She was given hydralazine with BP dropping all the way to 126.60 and developed a new Mobitz 2 HB with rates in the 30s. On arrival to ICU, remains asymptomatic. BP now in 160s with HR still in 30s. - HB: type 2. Cardiology consulted. Reportedly considering pacemaker placement in AM. - HTN: profound response to hydralazine. If needed again, will use 5 mg. Restart home norvasc and lisinopril. Patient assessed via real time audiovisual communication system. CCT 12 min Focused Exam Height, Weight, BMI Height: '" Weight: lbs. oz. kg; 21.00 BMI Method: ROSIE ROSALES MD May 27, 2023 03:04
[2023-05-27 04:07] LABS: BASOPHILS # (AUTO) 0.1 10^3/uL (0.0-0.1); BASOPHILS % (AUTO) 1 % (0-10); EOSINOPHILS # (AUTO) 0.1 10^3/uL (0.0-0.3); EOSINOPHILS % (AUTO) 1 % (0-10); HEMATOCRIT 34 % (35-52); HEMOGLOBIN 11.5 g/dL (11.5-16.0); LYMPHOCYTES # (AUTO) 1.6 10^3/uL (1.0-4.0); LYMPHOCYTES % (AUTO) 14 % (12-44); MEAN CORPUSCULAR HEMOGLOBIN 32 pg (25-34); MEAN CORPUSCULAR HGB CONC 34 g/dL (32-36); MEAN CORPUSCULAR VOLUME 95 fL (80-99); MEAN PLATELET VOLUME 11.2 fL (9.0-12.2); MONOCYTES # (AUTO) 0.7 10^3/uL (0.0-1.0); MONOCYTES % (AUTO) 6 % (0-12); NEUTROPHILS # (AUTO) 8.5 10^3/uL (1.8-7.8); NEUTROPHILS % (AUTO) 78 % (42-75); PLATELET COUNT 224 10^3/uL (130-400)
[2023-05-27 04:21] LABS: ALBUMIN 3.6 GM/DL (3.2-4.5); CHLORIDE 102 MMOL/L (98-107); POTASSIUM 3.4 MMOL/L (3.6-5.0); SODIUM 135 MMOL/L (135-145)
[2023-05-27 04:24] LABS: GLUCOSE 150 MG/DL (70-105); TOTAL PROTEIN 6.3 GM/DL (6.4-8.2)
[2023-05-27 04:25] LABS: BILIRUBIN,TOTAL 0.4 MG/DL (0.1-1.0); CARBON DIOXIDE 24 MMOL/L (21-32)
[2023-05-27 04:27] LABS: ALKALINE PHOSPHATASE 59 U/L (40-136); GFR ESTIMATED 72; PHOSPHORUS 2.7 MG/DL (2.3-4.7)
[2023-05-27 04:28] LABS: BUN/CREATININE RATIO 18
[2023-05-27 04:30] LABS: ALANINE AMINOTRANSFERASE 20 U/L (0-55); MAGNESIUM 1.6 MG/DL (1.6-2.4)
[2023-05-27] MEDS: MAGNESIUM 1 GM/100 ML IVPB 100 ML IV SCH ×5 (05:42→18:32)
[2023-05-27] MEDS: POTASSIUM CL 10MEQ/50ML IVPB 50 ML IV SCH ×5 (05:42→09:55)
[2023-05-27] MEDS: POTASSIUM CHLORIDE 20 MEQ TABLET PO SCH (05:43)
--- NOTE | 2023-05-27 06:13 | Diagnostic Imaging Report ---
PROCEDURE: CT head wo r/o stroke. TECHNIQUE: Multiple contiguous axial images were obtained through the brain without the use of intravenous contrast. Auto Exposure Controls were utilized during the CT exam to meet ALARA standards for radiation dose reduction. INDICATION: Altered mental status, neurological deficit. COMPARISON: 08/30/2022. DISCUSSION: No adverse interval change. White matter hypoattenuation is nonspecific, greater than expected for age related chronic small small vessel ischemic disease. Mild diffuse brain volume loss is likely age related. No acute intracranial hemorrhage, mass, midline shift, or hydrocephalus. Mild mucosal thickening within the ethmoid air cells. No air-fluid level. The mastoid air cells are well-aerated. The orbits and calvarium are unremarkable. IMPRESSION: 1. Stable senescent changes as described. No acute intracranial abnormality identified. 2. Agree with preliminary report. Dictated by: Dictated on workstation # [id number]
[2023-05-27] MEDS: CATHETER FLUSH 10 ML SYR IVP SCH ×3 (06:56→21:43)
--- NOTE | 2023-05-27 08:06 | Diagnostic Imaging Report ---
INDICATION: Hypertension. Dyspnea. COMPARISON: 03/31/2023. DISCUSSION: Single portable upright view of the chest was obtained. Normal heart size. No consolidation, pleural fluid, or pneumothorax. No osseous abnormality. IMPRESSION: 1. Negative portable chest. Dictated by: Dictated on workstation # [id number]
[2023-05-27] MEDS ORDERED: amLODIPine 10 MG TABLET PO ONE (09:00)
[2023-05-27] MEDS: cefTRIAXone IV/IM 1,000 MG in NS (IVPB) 50 ML 50 ML IV SCH (12:11)
--- NOTE | 2023-05-27 12:29 | Consultation-Cardiology ---
HPI-Cardiology Cardiology Consultation: Date of Consultation 05/27/23 Date of Admission Attending Physician Sergo Sal MD Admitting Physician Admitting Physician: Nai Stevens MD Attending Physician: Nai Stevens MD Consulting Physician Rickey FELICIANO MD HPI: Time Seen by a Provider: 11:30 Chief Complaint: Bradycardia This is a 87-year-old lady who has history of dementia, stroke, carotid disease and lives in a nursing facility. Presented with headache and was found to be in severe hypertension and second-degree heart block. Lowest heart rate in the 30s but she maintains heart rate in the 40s. Severely high blood pressure. Patient denies syncope, near syncope or dizziness. No other cardiac complaints. Denies active smoking. Patient is confused. Review of Systems-Cardiology Review of Systems Constitutional: no symptoms reported Eyes: no symptoms reported Ears/Nose/Throat: no symptoms reported Respiratory: no symptoms reported Cardiovascular: other (Bradycardia) Gastrointestinal: no symptoms reported Genitourinary: no symptoms reported Musculoskeletal: no symptoms reported Skin: no symptoms reported Psychiatric/Neurological: headache QOY-Ojuwbl-Uyercf Hx Immunizations Up To Date Date of Influenza Vaccine: Apr 16, 2023 Past Medical History PMH As described under Assessment. Allergies and Home Medications Allergies Coded Allergies: No Known Drug Allergies (Unverified , 08/30/22) Patient Home Medication List Home Medication List Reviewed: Yes Exam Vital Signs Vital Signs Date Time Temp Pulse Resp B/P (MAP) Pulse Ox O2 Delivery O2 Flow Rate FiO2 05/27/23 11:48 37.0 05/27/23 11:00 40 15 Room Air 05/27/23 10:00 98 Physical Exam Constitutional exam: Not in any distress. Chest: Clear to auscultation bilaterally. CVS: Bradycardic. No significant murmur, rub or gallop. Neuro: Nonfocal. Psychiatry: Patient is confused. Labs Laboratory Tests Test 05/26/23 22:34 05/26/23 22:40 05/27/23 03:58 Range/Units White Blood Count 10.6 11.0 4.3-11.0 10^3/uL Red Blood Count 3.71 L 3.62 L 3.80-5.11 10^6/uL Hemoglobin 12.0 11.5 11.5-16.0 g/dL Hematocrit 36 34 L 35-52 % Mean Corpuscular Volume 96 95 80-99 fL Mean Corpuscular Hemoglobin 32 32 25-34 pg Mean Corpuscular Hemoglobin Concent 34 34 32-36 g/dL Red Cell Distribution Width 12.8 12.8 10.0-14.5 % Platelet Count 239 224 130-400 10^3/uL Mean Platelet Volume 10.5 11.2 9.0-12.2 fL Immature Granulocyte % (Auto) 0 0 % Neutrophils (%) (Auto) 60 78 H 42-75 % Lymphocytes (%) (Auto) 28 14 12-44 % Monocytes (%) (Auto) 9 6 0-12 % Eosinophils (%) (Auto) 2 1 0-10 % Basophils (%) (Auto) 1 1 0-10 % Neutrophils # (Auto) 6.3 8.5 H 1.8-7.8 10^3/uL Lymphocytes # (Auto) 3.0 1.6 1.0-4.0 10^3/uL Monocytes # (Auto) 0.9 0.7 0.0-1.0 10^3/uL Eosinophils # (Auto) 0.2 0.1 0.0-0.3 10^3/uL Basophils # (Auto) 0.1 0.1 0.0-0.1 10^3/uL Immature Granulocyte # (Auto) 0.0 0.0 0.0-0.1 10^3/uL Erythrocyte Sedimentation Rate 11 0-30 MM/HR Prothrombin Time 12.2 12.2-14.7 SEC INR Comment 0.9 0.8-1.4 Activated Partial Thromboplast Time 32 24-35 SEC Sodium Level 137 135 135-145 MMOL/L Potassium Level 3.7 3.4 L 3.6-5.0 MMOL/L Chloride Level 100 102 98-107 MMOL/L Carbon Dioxide Level 27 24 21-32 MMOL/L Anion Gap 10 9 5-14 MMOL/L Blood Urea Nitrogen 16 14 7-18 MG/DL Creatinine 0.88 0.80 0.60-1.30 MG/DL Estimat Glomerular Filtration Rate 64 72 BUN/Creatinine Ratio 18 18 Glucose Level 123 H 150 H 70-105 MG/DL Calcium Level 9.2 9.0 8.5-10.1 MG/DL Corrected Calcium 9.3 9.3 8.5-10.1 MG/DL Magnesium Level 1.7 1.6 1.6-2.4 MG/DL Total Bilirubin 0.3 0.4 0.1-1.0 MG/DL Aspartate Amino Transf (AST/SGOT) 23 24 5-34 U/L Alanine Aminotransferase (ALT/SGPT) 21 20 0-55 U/L Alkaline Phosphatase 64 59 40-136 U/L C-Reactive Protein High Sensitivity 0.63 H 0.00-0.50 MG/DL Total Protein 6.8 6.3 L 6.4-8.2 GM/DL Albumin 3.9 3.6 3.2-4.5 GM/DL Urine Color YELLOW Urine Clarity CLEAR Urine pH 7.0 5-9 Urine Specific [place] 1.010 L 1.016-1.022 Urine Protein NEGATIVE NEGATIVE Urine Glucose (UA) NEGATIVE NEGATIVE Urine Ketones NEGATIVE NEGATIVE Urine Nitrite NEGATIVE NEGATIVE Urine Bilirubin NEGATIVE NEGATIVE Urine Urobilinogen 0.2 < = 1.0 MG/DL Urine Leukocyte Esterase 1+ H NEGATIVE Urine RBC (Auto) NEGATIVE NEGATIVE Urine RBC NONE /HPF Urine WBC 5-10 H /HPF Urine Squamous Epithelial Cells RARE /HPF Urine Crystals NONE /LPF Urine Bacteria FEW H /HPF Urine Casts NONE /LPF Urine Mucus NEGATIVE /LPF Urine Culture Indicated YES Phosphorus Level 2.7 2.3-4.7 MG/DL Troponin I < 0.028 <0.028 NG/ML ECG Impression ECG Initial ECG Impression: 2nd Degree AV Block A/P-Cardiology Assessment/Admission Diagnosis Second-degree heart block likely Mobitz type II, Dementia, Severe hypertension Plan Severe hypertension: Patient was given hydralazine. Defer to the ICU and m edicine teams. Dementia: Daughter has power of general internist. Second-degree heart block likely Mobitz type II: Dual-chamber permanent pacemaker is recommended. Informed consent was taken from the family at the bedside. 1% risk of complication including a small risk of was discussed and accepted by the family. We will proceed with dual-chamber permanent pacemaker with anesthesia support. Patient is n.p.o. overnight. Antibiotics will be given. Rickey FELICIANO MD May 27, 2023 12:29
[2023-05-27] MEDS ORDERED: HEParin (CATH LAB) 1,000 ML IV ONE (13:06)
[2023-05-27] MEDS ORDERED: LIDOCAINE 1% INJ 20 ML VIAL ONE (13:06)
[2023-05-27] MEDS ORDERED: NS IV 1000 ML 2,000 ML ONE (13:06)
[2023-05-27] MEDS ORDERED: MIDAZOLAM INJ 5 MG/5 ML VIAL ONE (13:27)
[2023-05-27] MEDS ORDERED: fentaNYL INJECTION 100 MCG/2 ML VIAL ONE (13:27)
[2023-05-27] MEDS ORDERED: ceFAZolin INJECTION 1,000 MG ONE ×2 (13:34→14:30)
--- NOTE | 2023-05-27 15:58 | Permanent Pacemaker Implant ---
Dual Chamber Pacemaker Implant PROCEDURE PHYSICIAN: Salma Solitario MD DUAL CHAMBER PACEMAKER IMPLANTATION: DATE OF PROCEDURE: 05/27/23 REFERRING PHYSICIAN: Dr. No Tate INDICATION: Second degree AV heart block, likely Mobitz II PREOPERATIVE DIAGNOSIS: Second degree AV heart block, likely Mobitz II POSTOPERATIVE DIAGNOSIS:Second degree AV heart block, likely Mobitz II HISTORY: 87 year old lady with dementia and hypertension. Presents with headache, hyperte nsion and bradycardia. Dual-chamber permanent pacemaker was recommended. PROCEDURE PERFORMED: 1. Dual-chamber permanent pacemaker implantation. 2. Fluoroscopy. 3. Central venous access. 4. Left subclavian venogram. ANESTHESIA: Local anesthesia, conscious sedation. COMPLICATIONS: None. ESTIMATED BLOOD LOSS:20 mL. SPECIMENS: None. ORAL ANTICOAGULATION: None. CONTRAST DOSE: 10 cc PROCEDURE DETAILS: The patient is a 87 female and after all of the patients questions were answered, the patient was brought to the EP Lab. The patient's left chest was prepped and draped in sterile fashion. A 2 inch horizontal incision was made 1 cm below the clavicle and dissection carried down to the pectoralis fascia. Using the modified Seldinger technique and under fluoroscopy guidance, the anterior aspect of the left axillary vein was accessed 2 times. The J wires were secured to the drapes with a mosquito clamp. A 7-Estonian sheath was introduced over one of the J-wires. The RV lead was then inserted. The RV lead was directed across the tricuspid valve to the apical portion of the right ventricle. The position was checked in STEVE and CAMPOVER[place] views. Close sensing and pacing thresholds were obtained. Diaphragmatic pacing was ruled out. The lead was secured with 0- ethibond ties to the underlying muscle and fascia. Next, a 7-Estonian sheath was introduced through the remaining J-wire. An atrial lead was then introduced and guided to the level of the right appendage. The screw was deployed and the lead was connected to the interrogator. Good sensing and pacing thresholds were obtained. Diaphragmatic pacing was ruled out. The leads were secured with 0-ethibond ties to the underlying muscle and fascia. The leads were connected to the device in a hermetic fashion. The device and leads were placed in the pocket. Aggressive irrigation with saline solution was done. The device was secured to the underlying muscle and fascia with a 0- ethibond. interrogation of the device revealed good integrity of all the leads and good connections. The wound was then closed using 2 layers. The first layer was interrupted 2-0 absorbable Vicryl suture. The last layer was a single subcuticular layer with 4- 0 Vicryl suture. Half inch Steri-Strips and a small dressing were then applied to the wound. The patient tolerated the procedure well and was returned to the recovery room in stable condition with stable vital signs. DEVICE INFORMATION: Medtronic, Model W1DR01, Serial number [id number], Implant date 05/27/2023 RA LEAD: Medtronic, Model 5076-52, Serial [id number], Implant date 05/27/2023 RV LEAD: Medtronic, Model 4074-58, Serial [id number], Implant date 05/27/2023 PER-OPERATIVE DEVICE INTERROGATION: Right atrial, P wave 1.1 mV, impedance 399 ohms, pacing threshold 1.0 V at 0.4 ms Right ventricle, R wave 4.0, pacing impedance 969 ohms, pacing threshold 0.5 V at 0.4 ms PLAN: The patient transferred to the ICU. We will continue with two more doses of IV antibiotics. We will check a chest x-ray and interrogate the device [facility]. The patient will continue on oral antibiotics for 5 days. Salma Solitario MD, [facility] Cardiac Electrophysiology Rickey SOLITARIO MD May 27, 2023 15:58
[2023-05-27] MEDS ORDERED: PATIENT MAY USE OWN MEDS, ALL PO SCH (16:00)
[2023-05-27] MEDS ORDERED: NS IV 1000 ML 1,000 ML IV SCH (16:00)
--- NOTE | 2023-05-27 16:17 | Anesthesia-General Post-Op ---
MAC Patient Condition Mental Status/LOC: Same as Preop Cardiovascular: Satisfactory Nausea/Vomiting: Absent Respiratory: Satisfactory Pain: Controlled Complications: Absent Post Op Complications Complications None Follow Up Care/Instructions Patient Instructions None needed. Anesthesiology Discharge Order Discharge Order Patient is doing well, no complaints, stable vital signs, no apparent adverse anesthesia problems. No complications reported per nursing. ANIYA SOUSA CRNA May 27, 2023 16:17
--- NOTE | 2023-05-27 16:35 | Diagnostic Imaging Report ---
INDICATION: Follow-up pacemaker placement. COMPARISON: 05/26/2023. DISCUSSION: Single portable upright view of the chest was obtained. New left-sided pacemaker with leads projected over the right atrium and right ventricle. Normal heart size. Elevated right hemidiaphragm. No consolidation, pleural fluid or pneumothorax. No osseous abnormality. IMPRESSION: Left-sided pacemaker. No pneumothorax. Dictated by: Dictated on workstation # [id number]
[2023-05-27] MEDS ORDERED: LABETALOL 5 mg/ml 4 ML SINGLE DOSE SYRINGE IV PRN (18:00)
[2023-05-27] MEDS ORDERED: LABETALOL 5 mg/ml 4 ML SINGLE DOSE SYRINGE ONE (18:07)
--- NOTE | 2023-05-27 19:30 | History & Physical-Hospitalist ---
History of Present Illness HPI/Chief Complaint Donald Meneses is an 87 year old female with PMH HTN, stroke, carotid stenosis, dementia, who presented from [facility] due to high blood pressure. She denies any complaints. She arrived and was found to be significantly hypertensive. She also had a low heart rate. She denies chest pain. She denies lightheadedness and dizziness. Source: patient, family Exam Limitations: no limitations Date Seen 05/27/23 Time Seen by a Provider: 09:55 Attending Physician Sergo Sal MD PCP Admitting Physician: Ashely Cadena MD Attending Physician: Ashely Cadena MD Referring Physician Date of Admission May 27, 2023 at 01:31 Home Medications & Allergies Home Medications Reviewed patient Home Medication Reconciliation performed by pharmacy medication reconciliations hvac engineering technician and/or nursing. Patients Allergies have been reviewed. 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 Arthritis, Chronic Back Pain Glaucoma Breast Did You Recieve Any Treatments: Yes What Type of Treatment Did You: Surgical Intervention Anxiety, Depression Blood Disorders: No Family Medical History No Pertinent Family Hx Review of Systems Constitutional: no symptoms reported Respiratory: no symptoms reported Cardiovascular: no symptoms reported Gastrointestinal: no symptoms reported Physical Exam Physical Exam Vital Signs Vital Signs - First Documented 05/26/23 05/27/23 21:50 01:50 Temp 36.8 Pulse 65 Resp 16 B/P (MAP) 213/86 (128) Pulse Ox 99 O2 Delivery Room Air Capillary Refill : Less Than 3 Seconds Height, Weight, BMI Height: '" Weight: lbs. oz. kg; 26.59 BMI Method: General Appearance: No Apparent Distress, WD/WN Respiratory: Lungs Clear, No Respiratory Distress Cardiovascular: No Murmur, Bradycardia Gastrointestinal: Normal Bowel Sounds, Non Tender, Soft Extremity: Normal Inspection, No Pedal Edema Neurologic/Psychiatric: Alert, Normal Mood/Affect Results Results/Procedures Labs Laboratory Tests 05/26/23 22:34 05/27/23 03:58 Patient resulted labs reviewed. Imaging: Reviewed Imaging Report Assessment/Plan Admission Diagnosis Heart block Admission Status: Inpatient Order (span 2 midnights) Reason for Inpatient Admission: Pacemaker Assessment and Plan Mobitz type II second degree heart block Hypertensive urgency Cardiology consulted Pacemaker implanted 05/27 TeleICU consulted Labetalol as needed Debility Dementia PT/OT Possible UTI Rocephin DVT prophylaxis: Lovenox Diagnosis/Problems Diagnosis/Problems (1) Mobitz type 2 second degree heart block Status: Acute (2) Hypertensive urgency Status: Acute (3) UTI (urinary tract infection) Status: Acute (4) Dementia Status: Acute ASHELY CADENA MD May 27, 2023 19:30
[2023-05-27] MEDS: ceFAZolin INJECTION 1,000 MG in NS (IVPB) 50 ML 50 ML IV SCH (21:43)
[2023-05-28] MEDS: CATHETER FLUSH 10 ML SYR IVP SCH ×3 (06:12→20:28)
[2023-05-28] MEDS: ceFAZolin INJECTION 1,000 MG in NS (IVPB) 50 ML 50 ML IV SCH ×2 (06:12→13:21)
[2023-05-28 06:20] LABS: BASOPHILS # (AUTO) 0.1 10^3/uL (0.0-0.1); BASOPHILS % (AUTO) 1 % (0-10); EOSINOPHILS # (AUTO) 0.1 10^3/uL (0.0-0.3); EOSINOPHILS % (AUTO) 1 % (0-10); HEMATOCRIT 34 % (35-52); HEMOGLOBIN 11.5 g/dL (11.5-16.0); LYMPHOCYTES # (AUTO) 1.3 10^3/uL (1.0-4.0); LYMPHOCYTES % (AUTO) 12 % (12-44); MEAN CORPUSCULAR HEMOGLOBIN 33 pg (25-34); MEAN CORPUSCULAR HGB CONC 34 g/dL (32-36); MEAN CORPUSCULAR VOLUME 97 fL (80-99); MEAN PLATELET VOLUME 10.8 fL (9.0-12.2); MONOCYTES # (AUTO) 0.8 10^3/uL (0.0-1.0); MONOCYTES % (AUTO) 8 % (0-12); NEUTROPHILS # (AUTO) 8.3 10^3/uL (1.8-7.8); NEUTROPHILS % (AUTO) 78 % (42-75); PLATELET COUNT 196 10^3/uL (130-400); WHITE BLOOD COUNT 10.6 10^3/uL (4.3-11.0)
[2023-05-28 06:36] LABS: ALBUMIN 3.5 GM/DL (3.2-4.5)
[2023-05-28 06:38] LABS: CALCIUM 8.3 MG/DL (8.5-10.1)
[2023-05-28 06:39] LABS: TOTAL PROTEIN 6.2 GM/DL (6.4-8.2)
[2023-05-28 06:41] LABS: BILIRUBIN,TOTAL 0.7 MG/DL (0.1-1.0)
[2023-05-28] MEDS: POTASSIUM CL 10MEQ/50ML IVPB 50 ML IV SCH (06:41)
[2023-05-28] MEDS: POTASSIUM CHLORIDE 20 MEQ TABLET PO SCH (06:41)
[2023-05-28 06:42] LABS: PHOSPHORUS 3.1 MG/DL (2.3-4.7)
[2023-05-28 06:43] LABS: CREATININE SERUM 0.78 MG/DL (0.60-1.30)
[2023-05-28 06:45] LABS: MAGNESIUM 2.1 MG/DL (1.6-2.4)
[2023-05-28] MEDS: MAGNESIUM 1 GM/100 ML IVPB 100 ML IV SCH (06:48)
[2023-05-28] MEDS: ENOXAPARIN 40 MG/0.4 ML SYRINGE SC SCH (08:23)
--- NOTE | 2023-05-28 09:16 | Tele-ICU Progress Note ---
Subjective Date Seen by a Provider: May 28, 2023 Time Seen by a Provider: 09:15 Subjective/Events-last exam ... (Tele-ICU Physician , Progress Note ) Service provided via interactive audio and video telecommunications E-CARE system to a patient admitted to ICU bed in [facility]. Patient is seen today due to persistent need of ICU care Available chart/ vitals / labs / Images reviewed Video assessment done using teleICU camera, rest of exam as per RN Discussed with RN Events overnight : Afebrile hemodynamically stable Respiratory - ra I/O = Drips: Pressors- no Hospital course: (05/27) 87/F with mild UTI and HYpertension. 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 Discussed with RN to reach out if any questions or concerns Case and care daily discussed on multidisciplinary rounds ( RN, PharmD, Animal Keeper Head , Respiratory Therapy, youth accommodation support worker ) A total of 10 minutes of critical care time was devoted to this patient today, required to treat and/or prevent further deterioration of critical care condition ( as above ) . I am remotely monitoring this patient from another state. I am unable to do the bedside exam, and history/physical and pertinent information is taken from other notes in the computer and bedside staff. Sepsis Event Evaluation Height, Weight, BMI Height: '" Weight: lbs. oz. kg; 26.55 BMI Method: Exam Exam Patient acknowledged, consented, and participated in this virtual visit which was conducted using real time audio/video Vital Signs Date Time Temp Pulse Resp B/P (MAP) Pulse Ox O2 Delivery O2 Flow Rate FiO2 05/28/23 08:22 96 Room Air 05/28/23 08:00 100 20 162/80 (107) 91 Room Air 05/28/23 07:30 36.3 05/28/23 07:00 72 11 160/57 (91) 91 Room Air 05/28/23 07:00 91 05/28/23 06:00 68 8 174/73 (106) 95 Room Air 05/28/23 05:00 80 9 159/66 (97) 95 Room Air 05/28/23 04:00 80 16 161/67 (98) 93 Room Air 05/28/23 03:55 96 Room Air 05/28/23 03:00 77 13 156/57 (90) 94 Room Air 05/28/23 02:00 71 11 158/61 (93) 95 Room Air 05/28/23 01:00 75 05/28/23 01:00 76 11 158/63 (94) 95 Room Air 05/28/23 00:00 70 9 171/69 (103) 95 Room Air 05/27/23 23:35 95 Room Air 05/27/23 23:00 84 22 167/76 (106) 93 Room Air 05/27/23 22:00 75 21 124/70 (88) 93 Room Air 05/27/23 21:00 65 17 128/63 (84) 97 Room Air 05/27/23 20:00 68 112/96 (101) 96 Room Air 05/27/23 19:46 97 Room Air 05/27/23 19:00 67 8 157/83 (107) 94 Room Air 05/27/23 19:00 74 05/27/23 18:00 79 12 198/86 (123) 95 Room Air 05/27/23 17:15 79 11 212/97 (135) 94 Room Air 05/27/23 17:00 79 11 200/86 (124) 94 Room Air 05/27/23 16:45 77 11 195/89 (124) 94 Room Air 05/27/23 16:30 75 13 200/84 (122) 94 Room Air 05/27/23 16:15 70 11 195/88 (123) 93 Room Air 05/27/23 13:00 41 05/27/23 12:00 98 Room Air 05/27/23 12:00 40 20 180/61 (100) 05/27/23 11:48 37.0 05/27/23 11:00 40 15 158/65 (96) Room Air 05/27/23 10:00 41 22 204/106 (138) 98 Room Air I & O 05/28/23 07:00 Intake Total 1050 ml Output Total 850 ml Balance 200 ml Height & Weight Height: '" Weight: lbs. oz. kg; 26.55 BMI Method: General Appearance: No Apparent Distress, WD/WN HEENT: PERRL/EOMI Neck: Normal Inspection Respiratory: Lungs Clear, No Respiratory Distress Cardiovascular: No Murmur, Bradycardia Capillary Refill: Less Than 3 Seconds Extremity: Normal Inspection, No Pedal Edema Neurologic/Psychiatric: Alert, Normal Mood/Affect Skin: Normal Color, Warm/Dry Results Lab Laboratory Tests 05/26/23 22:34 05/27/23 03:58 05/28/23 06:09 Assessment/Plan Assessment/Plan 1 LELAND KUNZ MD May 28, 2023 09:16
--- NOTE | 2023-05-28 10:50 | Diagnostic Imaging Report ---
EXAMINATION: Chest 2 view HISTORY: Pacemaker placement COMPARISON: 05/27/2023 FINDINGS: The lungs are clear without edema or pneumonia. No pleural effusion or pneumothorax. Heart size is normal. Left subclavian pacemaker is present. 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 IMPRESSION: 1. Left pacemaker without pneumothorax. Dictated by: Dictated on workstation # [id number]
--- NOTE | 2023-05-28 10:54 | Cardiology Progress Note ---
Cardiology SOAP Progress Note Subjective: No cardiac complaints. Objective: I&O/Vital Signs 05/27/23 05/27/23 05/28/23 05/28/23 23:00 23:35 00:00 01:00 Pulse 84 70 76 Resp 22 9 11 B/P (MAP) 167/76 (106) 171/69 (103) 158/63 (94) Pulse Ox 93 95 95 95 O2 Delivery Room Air Room Air Room Air Room Air 05/28/23 05/28/23 05/28/23 05/28/23 01:00 02:00 03:00 03:55 Pulse 75 71 77 Resp 11 13 B/P (MAP) 158/61 (93) 156/57 (90) Pulse Ox 95 94 96 O2 Delivery Room Air Room Air Room Air 05/28/23 05/28/23 05/28/23 05/28/23 04:00 05:00 06:00 07:00 Pulse 80 80 68 91 Resp 16 9 8 B/P (MAP) 161/67 (98) 159/66 (97) 174/73 (106) Pulse Ox 93 95 95 O2 Delivery Room Air Room Air Room Air 05/28/23 05/28/23 05/28/23 05/28/23 07:00 07:30 08:00 08:22 Temp 36.3 Pulse 72 100 Resp 11 20 B/P (MAP) 160/57 (91) 162/80 (107) Pulse Ox 91 91 96 O2 Delivery Room Air Room Air Room Air 05/28/23 05/28/23 09:00 10:00 Pulse 81 Resp 26 26 B/P (MAP) 123/113 (116) O2 Delivery Room Air 05/27/23 23:59 Intake Total 850 ml Output Total 450 ml Balance 400 ml Constitutional: AAO x 3 Respiratory: lungs clear to auscultation Cardiovascular: regular rate-rhythm Gastrointestional: soft Neurologic/Psychiatric: no motor/sensory deficits, alert, normal mood/affect Results/Procedures: Labs Laboratory Tests 05/28/23 06:09: White Blood Count 10.6, Red Blood Count 3.51L, Hemoglobin 11.5, Hematocrit 34L, Mean Corpuscular Volume 97, Mean Corpuscular Hemoglobin 33, Mean Corpuscular Hemoglobin Concent 34, Red Cell Distribution Width 13.0, Platelet Count 196, Mean Platelet Volume 10.8, Immature Granulocyte % (Auto) 0, Neutrophils (%) (Auto) 78H, Lymphocytes (%) (Auto) 12, Monocytes (%) (Auto) 8, Eosinophils (%) (Auto) 1, Basophils (%) (Auto) 1, Neutrophils # (Auto) 8.3H, Lymphocytes # (Auto ) 1.3, Monocytes # (Auto) 0.8, Eosinophils # (Auto) 0.1, Basophils # (Auto) 0.1, Immature Granulocyte # (Auto) 0.0, Sodium Level 135, Potassium Level 4.0, Chloride Level 105, Carbon Dioxide Level 23, Anion Gap 7, Blood Urea Nitrogen 11, Creatinine 0.78, Estimat Glomerular Filtration Rate 74, BUN/Creatinine Ratio 14, Glucose Level 135H, Calcium Level 8.3L, Corrected Calcium 8.7, Phosphorus Level 3.1, Magnesium Level 2.1, Total Bilirubin 0.7, Aspartate Amino Transf (A ST/SGOT) 26, Alanine Aminotransferase (ALT/SGPT) 18, Alkaline Phosphatase 57, Total Protein 6.2L, Albumin 3.5 Microbiology 05/27/23 MRSA Screen - Final, Complete MRSA not isolated A/P: Assessment/Dx: Second-degree heart block likely Mobitz type II, Dementia, Severe hypertension Plan: Severe hypertension: Patient was given hydralazine. Defer to the ICU and medicine teams. Dementia: Daughter has power of claim attorney. Second-degree heart block likely Mobitz type II: Dual-chamber permanent pacemaker done yesterday. Postoperative chest x-ray within acceptable limits. Device interrogation is normal this morning. Overnight Ancef given. Changed to Keflex to 50 mg twice daily for 5 days. Patient likely will be transferred to the snf tomorrow. Patient will follow-up with Dr. Sen as an outpatient. Rickey FELICIANO MD May 28, 2023 10:54
[2023-05-28] MEDS: amLODIPine 10 MG TABLET PO SCH (11:02)
[2023-05-28 12:00] VITALS: BP 200/85
[2023-05-28] MEDS: cefTRIAXone IV/IM 1,000 MG in NS (IVPB) 50 ML 50 ML IV SCH (12:46)
[2023-05-28 14:26] VITALS: BP 156/69
[2023-05-28 16:10] VITALS: BP 171/74
--- NOTE | 2023-05-28 17:58 | Progress Note - Hospitalist ---
Subjective HPI/CC On Admission Date Seen by Provider: May 28, 2023 Time Seen by Provider: 09:35 Donald Meneses is an 87 year old female with PMH HTN, stroke, carotid stenosis, dementia, who presented from [facility] due to high blood pressure. She denies any complaints. She arrived and was found to be significantly hypertensive. She also had a low heart rate. She denies chest pain. She denies lightheadedness and dizziness. Subjective/Events-last exam She is feeling well. She denies pain. She has no complaints. Objective Exam Vital Signs Vital Signs Date Time Temp Pulse Resp B/P (MAP) Pulse Ox O2 Delivery O2 Flow Rate FiO2 05/28/23 16:10 36.7 86 18 171/74 (106) 92 Room Air Capillary Refill : Less Than 3 Seconds General Appearance: No Apparent Distress, WD/WN Respiratory: Lungs Clear, No Respiratory Distress Cardiovascular: Regular Rate, Rhythm, No Murmur Gastrointestinal: Normal Bowel Sounds, Soft Extremity: Normal Inspection, No Pedal Edema Neurologic/Psychiatric: Alert, Normal Mood/Affect Skin: Normal Color, Warm/Dry Results/Procedures Lab Laboratory Tests 05/28/23 06:09 Patient resulted labs reviewed. Imaging: Reviewed Imaging Report Assessment/Plan Assessment and Plan Assess & Plan/Chief Complaint Mobitz type II second degree heart block s/p pacemaker Hypertensive urgency Cardiology consulted Pacemaker implanted 05/27 Amlodipine and Metoprolol Debility Dementia PT/OT Possible UTI Rocephin DVT prophylaxis: Lovenox Diagnosis/Problems Diagnosis/Problems (1) Mobitz type 2 second degree heart block Status: Acute (2) Hypertensive urgency Status: Acute (3) UTI (urinary tract infection) Status: Acute (4) Dementia Status: Acute ASHELY CADENA MD May 28, 2023 17:57
[2023-05-28 19:21] VITALS: BP_SYST 162; BP_SYST 185; BP_DIAS 75; BP_DIAS 79
[2023-05-28] MEDS: CEPHALEXIN 250 MG CAPSULE PO SCH (20:04)
[2023-05-28] MEDS: ACETAMINOPHEN 325 MG TABLET PO PRN (20:06)
[2023-05-28 23:41] VITALS: BP 126/67
[2023-05-29 03:55] VITALS: BP 159/72
[2023-05-29 06:00] LABS: BASOPHILS # (AUTO) 0.1 10^3/uL (0.0-0.1); BASOPHILS % (AUTO) 1 % (0-10); EOSINOPHILS # (AUTO) 0.2 10^3/uL (0.0-0.3); EOSINOPHILS % (AUTO) 2 % (0-10); HEMATOCRIT 33 % (35-52); HEMOGLOBIN 10.7 g/dL (11.5-16.0); LYMPHOCYTES # (AUTO) 1.6 10^3/uL (1.0-4.0); LYMPHOCYTES % (AUTO) 16 % (12-44); MEAN CORPUSCULAR HEMOGLOBIN 32 pg (25-34); MEAN CORPUSCULAR HGB CONC 33 g/dL (32-36); MEAN CORPUSCULAR VOLUME 97 fL (80-99); MONOCYTES # (AUTO) 1.1 10^3/uL (0.0-1.0); MONOCYTES % (AUTO) 11 % (0-12); NEUTROPHILS # (AUTO) 7.1 10^3/uL (1.8-7.8); NEUTROPHILS % (AUTO) 70 % (42-75); PLATELET COUNT 198 10^3/uL (130-400); WHITE BLOOD COUNT 10.1 10^3/uL (4.3-11.0)
[2023-05-29] MEDS: CATHETER FLUSH 10 ML SYR IVP SCH ×3 (06:11→22:21)
[2023-05-29 06:18] LABS: ALBUMIN 3.4 GM/DL (3.2-4.5); BILIRUBIN,TOTAL 0.6 MG/DL (0.1-1.0); CALCIUM 8.3 MG/DL (8.5-10.1); CREATININE SERUM 0.75 MG/DL (0.60-1.30); MAGNESIUM 1.9 MG/DL (1.6-2.4); PHOSPHORUS 2.9 MG/DL (2.3-4.7); POTASSIUM 3.9 MMOL/L (3.6-5.0); TOTAL PROTEIN 5.9 GM/DL (6.4-8.2)
[2023-05-29] MEDS: POTASSIUM CL 10MEQ/50ML IVPB 50 ML IV SCH (06:34)
[2023-05-29] MEDS: POTASSIUM CHLORIDE 20 MEQ TABLET PO SCH (06:34)
[2023-05-29] MEDS: MAGNESIUM 1 GM/100 ML IVPB 100 ML IV SCH (06:34)
[2023-05-29 07:37] VITALS: BP 161/76
[2023-05-29] MEDS: amLODIPine 10 MG TABLET PO SCH (09:08)
[2023-05-29] MEDS: ENOXAPARIN 40 MG/0.4 ML SYRINGE SC SCH (09:08)
[2023-05-29] MEDS: CEPHALEXIN 250 MG CAPSULE PO SCH ×2 (09:12→20:58)
[2023-05-29] MEDS: ACETAMINOPHEN 325 MG TABLET PO PRN ×3 (09:32→20:58)
--- NOTE | 2023-05-29 10:58 | Cardiology Progress Note ---
Subjective Date Seen by Provider: May 29, 2023 Time Seen by Provider: 10:53 Subjective/Events-last exam Patient sitting up in chair, denies any chest pain or dyspnea. PPM site is C/D/I Objective-Cardiology Exam Last Set of Vital Signs Vital Signs 05/29/23 05/29/23 07:37 08:00 Temp 36.4 Pulse 75 Resp 16 B/P (MAP) 161/76 (104) Pulse Ox 95 O2 Delivery Room Air I&O Intake and Output 05/28/23 23:59 Intake Total 400 ml Output Total 850 ml Balance -450 ml Intake Oral 400 ml Output Urine Total 850 ml # Voids 2 General: Alert, Oriented X3, Cooperative HEENT: Atraumatic, PERRLA Lungs: Clear to Auscultation, Normal Air Movement Heart: Regular Rate, Normal S1, Normal S2 Abdomen: Normal Bowel Sounds, Soft Extremities: No Edema Skin: No Rashes, No Significant Lesion Neuro: Normal Speech Psych/Mental Status: Mental Status NL, Mood NL Results Lab Laboratory Tests 05/29/23 05:26 A/P-Cardiology Admission Diagnosis 2nd degree AV block HTN Dementia Carotid artery stenosis Assessment/Plan Second-degree heart block likely Mobitz type II: Dual-chamber permanent pacemaker done 05/26/23. Continue to monitor, site is healing well Continue on oral antibiotic Okay for discharge from cardiology standpoint Severe hypertension, blood pressure better controlled. Dementia: Daughter has power of tax associate attorney Carotid artery stenosis, history of CEA with Dr Kramer in the past. Will plan for Carotid US in our office as outpatient. OK for discharge from cardiology standpoint. Supervisory-Addendum Brief Supervisory Addendum Participated in pt care: history, MDM, physical Personally performed: exam, history, MDM Care discussed with: JACEY Results interpretation: Verified all documentation Notes: Patient was seen and evaluated with Camila, examination performed, management plan was discussed, agree with the current scribed note, I made few changes to the note using Italic font Patient was seen at bedside, sitting comfortably, site is healing well Okay for discharge and follow-up in 1 to 2 weeks for wound check CAMILA CHRIS PA-C May 29, 2023 10:58 MICHAEL BAUTISTA MD May 29, 2023 11:07
[2023-05-29] MEDS ORDERED: MAG30ORA2 PO (11:05)
[2023-05-29] MEDS ORDERED: ACET325T38 PO (11:06)
[2023-05-29] MEDS ORDERED: SERT-412 PO (11:07)
[2023-05-29] MEDS ORDERED: MULT-1136 PO (11:07)
[2023-05-29] MEDS ORDERED: LISI40TA9 PO (11:08)
[2023-05-29] MEDS ORDERED: PRAV40TA2 PO (11:08)
[2023-05-29] MEDS ORDERED: MEMA10TA57 PO (11:08)
[2023-05-29 11:22] VITALS: BP 125/60
[2023-05-29] MEDS ORDERED: DONE10TA41 PO (11:25)
[2023-05-29] MEDS ORDERED: HYDR25TA4 PO (11:25)
[2023-05-29] MEDS ORDERED: ROPI0.5T37 PO (11:26)
[2023-05-29] MEDS ORDERED: CALC-794 PO (11:27)
[2023-05-29] MEDS ORDERED: MV-M1CAP24 PO (11:30)
[2023-05-29] MEDS ORDERED: OMEG100032 PO (11:30)
[2023-05-29] MEDS ORDERED: NFBIOT1000 PO (11:31)
[2023-05-29] MEDS ORDERED: LATA2.5D19 OU (11:32)
[2023-05-29] MEDS ORDERED: ALPR0.254 PO (11:32)
[2023-05-29] MEDS ORDERED: HYOS0.1283 SL (11:33)
[2023-05-29] MEDS ORDERED: ALBU8.5H6 PO (11:34)
[2023-05-29] MEDS ORDERED: ONDA-105 PO (11:34)
--- NOTE | 2023-05-29 11:47 | Physical Therapy Evaluation ---
PT Evaluation-General Medical Diagnosis Admission Date May 27, 2023 at 01:31 Medical Diagnosis: heart block/HTN/pacemaker Onset Date: May 27, 2023 Therapy Diagnosis Therapy Diagnosis: debility Precautions Precautions/Isolations: Standard Precautions Referral Physician: Hilda Reason for Referral: Evaluation/Treatment Medical History Pertinent Medical History: Breast CA S/P Mastectomy, COPD, Dementia Current History EMS from [place] secondary to [place]AD[place]ES and elevated BP (s/p pacemaker placement) Reviewed History: Yes Social History Home: Assisted Living Prior Prior Level of Function SCALE: Activities may be completed with or without assistive devices. 1-Jolgdssefh-povwycz completes the activity by him/herself with no assistance from a helper. 5-Set-up or Clean-up Assistance-helper sets up or cleans up; patient completes activity. [place] assists only prior to or following the activity. 4-Supervision or Touching Assistance-helper provides verbal cues and/or touching/steadying and/or contact guard assistance as patient completes a ctivity. Assistance may be provided throughout the activity or intermittently. 3-Partial/Moderate Assistance-helper does LESS THAN HALF the effort. [place] lifts, holds or supports trunk or limbs, but provides less than half the effort. 2-Substantial/Maximal Assistance-helper does MORE THAN HALF the effort. [place] lifts or holds trunk or limbs and provides more than half the effort. 0-Eczenkiga-aoshef does ALL the effort. Patient does none of the effort to complete the activity. Or, the assistance of 2 or more helpers is required for the patient to complete the activity. If activity was not attempted, code reason: 7-Patient Refused. 9-Not Applicable-not attempted and the patient did not perform the activity before the current illness, exacerbation or injury. 10-Not Attempted due to Environmental Limitations-(lack of equipment, weather restraints, etc.). 88-Not Attempted due to Medical Conditions or Safety Concerns. Bed Mobility: 4 Transfers (B,C,W/C): 4 Gait: 4 Indoor Mobility (Ambulation): Needed Some Help Prior Devices Use: Walker PT Evaluation-Current Subjective Patient and family agree to therapy. Objective Patient Orientation: Person ROM/Strength ROM Lower Extremities bilateral LE WFL Strength Lower Extremities 4-/5 grossly bilateral LE Integumentary/Posture Bowel Incontinence: No Bladder Incontinence: No Posture WFL/scoliosis Neuromuscular (Tone, Coordination, Reflexes) grossly intact Sensory Vision: Functional Hearing: Impaired Transfers Lying to Sitting/Side of Bed(Q: 4 Sit to Stand (QC): 4 Chair/Syg-qq-Lwqll Xfer(QC): 4 Gait Mode of Locomotion: Walk Anticipated Mode of Locomotion: Walk Walk 10 feet (QC): 4 Walk 50 ft with 2 Turns(QC): 4 Walk 150 ft (QC): 4 Distance: 275' Gait Assistive Device: FWW Comments/Gait Description steady, functional gait sequence Balance Sitting Static: Normal Sitting Dynamic: Normal Standing Static: Normal Standing Dynamic: Normal Assessment/Needs Patient will be seen short term by skilled PT to address functional mobility to ensure safe return to [place] at maximum LOF. Rehab Potential: Fair PT Fpc Goals Print Line Operator Goals PT Fpc Goals Time Frame: Jun 10, 2023 Roll Left & Right (QC): 5 Sit to Lying (QC): 5 Lying-Sitting on Side/Bed(QC): 5 Sit to Stand (QC): 5 Chair/Ubi-yn-Kdunt Xfer(QC): 5 Toilet Transfer (QC): 5 Walk 10 feet (QC): 5 Walk 50ft with 2 Turns (QC): 5 Walk 150 ft (QC): 5 PT Plan Problem List Problem List: Gait, Transfer, Bed Mobility Treatment/Plan Treatment Plan: Continue Plan of Care Treatment Plan: Bed Mobility, Education, Functional Activity Russell, Functional Strength, Gait, Safety, Therapeutic Exercise, Transfers Treatment Duration: Jun 10, 2023 Frequency: 5 times per week Estimated Hrs Per Day: .25 hour per day Patient and/or Family Agrees t: Yes Time Time In: 1025 Time Out: 1040 DATE: May 29, 2023 Total Billed Treatment Time: 15 Total Billed Treatment 1 visit [facility] 15 min JIMBO ESTRADA PT May 29, 2023 11:47
[2023-05-29] MEDS: cefTRIAXone IV/IM 1,000 MG in NS (IVPB) 50 ML 50 ML IV SCH (12:33)
--- NOTE | 2023-05-29 13:23 | Progress Note - Hospitalist ---
Subjective HPI/CC On Admission Date Seen by Provider: May 29, 2023 Donald Meneses is an 87 year old female with PMH HTN, stroke, carotid stenosis, dementia, who presented from [facility] due to high blood pressure. She denies any complaints. She arrived and was found to be significantly hypertensive. She also had a low heart rate. She denies chest pain. She denies lightheadedness and dizziness. Subjective/Events-last exam Pt has no specific complaints. When asked how she is feeling she said "how do you think?" Family report she is "spicy" today. About to get up and work with PT. Objective Exam Vital Signs Vital Signs Date Time Temp Pulse Resp B/P (MAP) Pulse Ox O2 Delivery O2 Flow Rate FiO2 05/29/23 11:22 36.9 67 16 125/60 (81) 94 Room Air Capillary Refill : Less Than 3 Seconds General Appearance: No Apparent Distress, Chronically ill Respiratory: Lungs Clear, No Respiratory Distress Cardiovascular: Regular Rate, Rhythm, No Murmur Gastrointestinal: Normal Bowel Sounds, Soft Neurologic/Psychiatric: Alert, Oriented x3 Results/Procedures Lab Laboratory Tests 05/29/23 05:26 Patient resulted labs reviewed. Imaging: Reviewed Imaging Report Assessment/Plan Assessment and Plan Assess & Plan/Chief Complaint Mobitz type II second degree heart block s/p pacemaker Hypertensive urgency Cardiology consulted Pacemaker implanted 05/27 Amlodipine and Metoprolol Doing well Continue keflex Debility Dementia PT/OT Possible UTI Completed Rocephin DVT prophylaxis: RIVKA Small MD May 29, 2023 13:23
--- NOTE | 2023-05-29 14:25 | Occupational Therapy Eval ---
OT Evaluation-General/PLF Medical Diagnosis Admission Date May 27, 2023 at 01:31 Medical Diagnosis: heart block/HTN/pacemaker Onset Date: May 27, 2023 Therapy Diagnosis Therapy Diagnosis: s/p PPM Precautions Precautions/Isolations: Standard Precautions Weight Bear Status PPM restrictions Referral Physician: Hilda Referral Reason: Self Care, Evaluation/Treatment Medical History Pertinent Medical History: Breast CA S/P Mastectomy, COPD, Dementia Reviewed History: Yes Social History Home: Assisted Living ADL-Prior Level of Function SCALE: Activities may be completed with or without assistive devices. 8-Bncilshbzk-xqovios completes the activity by him/herself with no assistance from a helper. 5-Set-up or Clean-up Assistance-helper sets up or cleans up; patient completes activity. [place] assists only prior to or following the activity. 4-Supervision or Touching Assistance-helper provides verbal cues and/or touching/steadying and/or contact guard assistance as patient completes activity. Assistance may be provided throughout the activity or intermittently. 3-Partial/Moderate Assistance-helper does LESS THAN HALF the effort. [place] lifts, holds or supports trunk or limbs, but provides less than half the effort. 2-Substantial/Maximal Assistance-helper does MORE THAN HALF the effort. [place] lifts or holds trunk or limbs and provides more than half the effort. 2-Nsniqtihl-gyhxro does ALL the effort. Patient does none of the effort to complete the activity. Or, the assistance of 2 or more helpers is required for the patient to complete the activity. If activity was not attempted, code reason: 7-Patient Refused. 9-Not Applicable-not attempted and the patient did not perform the activity before the current illness, exacerbation or injury. 10-Not Attempted due to Environmental Limitations-(lack of equipment, weather restraints, etc.). 88-Not Attempted due to Medical Conditions or Safety Concerns. Self Care: Needed Some Help Functional Cognition: Needed Some Help Drive Self: No OT Current Status Subjective Agreeable to OT, family present and verbalized understanding of PPM precaution Mental Status/Objective Patient Orientation: Person, Place, Situation Current Hand Dominance: Right Upper Extremity ROM LUE ROM restricted 90 degrees, no lifting pushing, pulling greater than 8 pounds Upper Extremity Strength RESTRICTED ADL-Treatment Eating (QC): 5 Oral Hygiene (QC): 5 Shower/Bathe Self (QC): 7 Upper Body Dressing (QC): 4 Lower Body Dressing (QC): 4 On/Off Footwear (QC): 4 Toileting Hygiene (QC): 4 Education OT Patient Education: Correct positioning, Instructions to caregiver, Modified ADL techniques, Progress toward Goal/Update tx plan, Purpose of tx/functional activities, Reviewed precautions, Rehab process, Safety issues, Transfer techniques Teaching Recipient: Patient, Family Response to Teaching: Verbalize Understanding, Return Demonstration, Reinforcement Needed OT Hub Borer Goals [facility]ci Goals Eating (QC): 6 Oral Hygiene (QC): 5 Toileting Hygiene (QC): 5 Shower/Bathe Self (QC): 5 Upper Body Dressing (QC): 5 Lower Body Dressing (QC): 5 On/Off Footwear (QC): 5 1=Demonstrate adherence to instructed precautions during ADL tasks. 2=Patient will verbalize/demonstrate understanding of assistive devices/modifications for ADL. 3=Patient will improve strength/tolerance for activity to enable patient to perform ADL's. OT Education/Plan Problem List/Assessment Assessment: Decreased Activ Tolerance, Decreased Safety Aware, Decreased UE Strength, Impaired Self-Care Skills, Restricted Funct UE ROM Discharge Recommendations Plan/Recommendations: Continue POC Treatment Plan/Plan of Care Treatment,Training & Education: Yes Patient would benefit from OT for education, treatment and training to promote independence in ADL's, mobility, safety and/or upper extremity function for ADL's. Plan of Care: ADL Retraining, Concurrent Therapy, Functional Mobility, UE Funct Exercise/Act, UE Neuromus Re-Ed/Coord Treatment Duration: Jun 02, 2023 Frequency: 3 times per week Estimated Hrs Per Day: .25 hour per day Agreement: Yes Rehab Potential: Fair Time Start Time: 10:15 Stop Time: 10:25 DATE: May 29, 2023 Total Time Billed (hr/min): 10 Billed Treatment Time EVM 19 min MATT GUEVARA OT May 29, 2023 14:25
[2023-05-29 16:01] VITALS: BP 170/75
--- NOTE | 2023-05-29 19:55 | Discharge Inst-Skilled Nursing ---
Discharge Inst-Skilled NF Chief Complaint Donald Meneses is an 87 year old female with PMH HTN, stroke, carotid stenosis, dementia, who presented from [facility] due to high blood pressure. She denies any complaints. She arrived and was found to be significantly hypertensive. She also had a low heart rate. She denies chest pain. She denies lightheadedness and dizziness. Consult/Follow Up/Orders Follow Up Appt.: With Cardiology and your PCP Skilled NF Admit to: [facility] Certification (SNF) I certify that SNF services are required to be given on an inpatient basis because of the above named patient's need for alf care on a continuing basis for the conditions(s) for which he/she was receiving inpatient hospital services prior to his/her transfer to the SNF. [facility] Facility Order: Nursing Services, Materials Technician-Evaluate & Treat, Physical Therapy-Evaluate & Treat Oxygen Delivery Method: Room Air Discharge Diet: No Restrictions Resuscitation Status: Do Not Resuscitate New & Resume Previous Orders Rivka Arrington May 29, 2023 19:54 RIVKA ARRINGTON MD May 29, 2023 19:54
[2023-05-29 19:58] VITALS: BP 182/74
[2023-05-29] MEDS ORDERED: ANTACID SUSPENSION 30 ML UDC PO PRN (20:00)
[2023-05-29] MEDS ORDERED: rOPINIRole 0.25 MG TABLET ONE (20:53)
[2023-05-29] MEDS ORDERED: SERTRALINE 50 MG TABLET ONE (20:54)
[2023-05-29] MEDS ORDERED: MEMANTINE 10 MG TABLET ONE (20:55)
[2023-05-29] MEDS ORDERED: DONEPEZIL 10 MG TABLET ONE (20:56)
[2023-05-29] MEDS ORDERED: NON-FORMULARY MEDICATION 1 EA EA (Ropinirole HCl 0.5 MG) PO SCH (21:00)
[2023-05-29] MEDS ORDERED: DONEPEZIL 10 MG TABLET PO SCH (21:00)
[2023-05-29] MEDS ORDERED: LATANOPROST 0.005% OPHTH SOLN 2.5 ML OU SCH (21:00)
[2023-05-29] MEDS ORDERED: NON-FORMULARY MEDICATION 1 EA EA (Sertraline HCl 25 MG) PO SCH (21:00)
[2023-05-29] MEDS: MEMANTINE 10 MG TABLET PO SCH (21:04)
[2023-05-29] MEDS ORDERED: ALPRAZolam 0.25 MG TABLET ONE (21:37)
[2023-05-29] MEDS ORDERED: HYOSCYAMINE 0.125 MG TABLET SL PRN (22:15)
[2023-05-30] VITALS: BP 165/70
[2023-05-30 03:00] VITALS: BP 174/75
[2023-05-30] MEDS: CATHETER FLUSH 10 ML SYR IVP SCH ×2 (05:45→14:10)
[2023-05-30 06:09] LABS: BASOPHILS % (AUTO) 1 % (0-10); EOSINOPHILS # (AUTO) 0.2 10^3/uL (0.0-0.3); EOSINOPHILS % (AUTO) 3 % (0-10); HEMATOCRIT 34 % (35-52); HEMOGLOBIN 11.1 g/dL (11.5-16.0); LYMPHOCYTES # (AUTO) 1.6 10^3/uL (1.0-4.0); LYMPHOCYTES % (AUTO) 18 % (12-44); MEAN CORPUSCULAR HEMOGLOBIN 32 pg (25-34); MEAN CORPUSCULAR HGB CONC 33 g/dL (32-36); MEAN CORPUSCULAR VOLUME 97 fL (80-99); MEAN PLATELET VOLUME 10.9 fL (9.0-12.2); MONOCYTES # (AUTO) 0.8 10^3/uL (0.0-1.0); MONOCYTES % (AUTO) 9 % (0-12); NEUTROPHILS # (AUTO) 6.2 10^3/uL (1.8-7.8); NEUTROPHILS % (AUTO) 70 % (42-75); PLATELET COUNT 206 10^3/uL (130-400); WHITE BLOOD COUNT 8.9 10^3/uL (4.3-11.0)
[2023-05-30 06:23] LABS: ALBUMIN 3.5 GM/DL (3.2-4.5); POTASSIUM 3.6 MMOL/L (3.6-5.0)
[2023-05-30 06:24] LABS: CALCIUM 8.4 MG/DL (8.5-10.1)
[2023-05-30 06:25] LABS: TOTAL PROTEIN 6.3 GM/DL (6.4-8.2)
[2023-05-30 06:27] LABS: BILIRUBIN,TOTAL 0.6 MG/DL (0.1-1.0)
[2023-05-30 06:28] LABS: PHOSPHORUS 2.6 MG/DL (2.3-4.7)
[2023-05-30 06:29] LABS: CREATININE SERUM 0.65 MG/DL (0.60-1.30)
[2023-05-30 06:33] LABS: MAGNESIUM 1.9 MG/DL (1.6-2.4)
[2023-05-30] MEDS: POTASSIUM CHLORIDE 20 MEQ TABLET PO SCH (06:38)
[2023-05-30] MEDS: POTASSIUM CL 10MEQ/50ML IVPB 50 ML IV SCH (06:38)
[2023-05-30] MEDS: MAGNESIUM 1 GM/100 ML IVPB 100 ML IV SCH (06:38)
[2023-05-30 07:52] VITALS: BP 174/77
--- NOTE | 2023-05-30 08:42 | Cardiology Progress Note ---
Subjective Date Seen by Provider: May 30, 2023 Time Seen by Provider: 08:42 Subjective/Events-last exam Patient was seen at bedside, sitting comfortably, no new complain Objective-Cardiology Exam Last Set of Vital Signs Vital Signs 05/30/23 07:52 Temp 36.1 Pulse 77 Resp 16 B/P (MAP) 174/77 (109) Pulse Ox 96 O2 Delivery Room Air I&O Intake and Output 05/30/23 00:00 Intake Total 1000 ml Output Total 400 ml Balance 600 ml Intake Oral 900 ml IV Total 100 ml Output Urine Total 400 ml # Voids 6 General: Alert, Oriented X3, Cooperative HEENT: Atraumatic, PERRLA Lungs: Clear to Auscultation, Normal Air Movement Heart: Regular Rate, Normal S1, Normal S2 Abdomen: Normal Bowel Sounds, Soft Extremities: No Edema Skin: No Rashes, No Significant Lesion Neuro: Normal Speech Psych/Mental Status: Mental Status NL, Mood NL Results Lab Laboratory Tests 05/30/23 05:54 A/P-Cardiology Admission Diagnosis 2nd degree AV block HTN Dementia Carotid artery stenosis Assessment/Plan Second-degree heart block likely Mobitz type II: Dual-chamber permanent pacemaker done 05/26/23. Continue to monitor, site is healing well Continue on oral antibiotic Okay for discharge from cardiology standpoint Severe hypertension, blood pressure better controlled. Dementia: Daughter has power of workers compensation defense attorney Carotid artery stenosis, history of CEA with Dr Kramer in the past. Will plan for Carotid US in our office as outpatient. OK for discharge from cardiology standpoint. MICHAEL BAUTISTA MD May 30, 2023 08:42
[2023-05-30] MEDS: CEPHALEXIN 250 MG CAPSULE PO SCH (08:51)
[2023-05-30] MEDS: ENOXAPARIN 40 MG/0.4 ML SYRINGE SC SCH (08:51)
[2023-05-30] MEDS: amLODIPine 10 MG TABLET PO SCH (08:51)
[2023-05-30] MEDS: MEMANTINE 10 MG TABLET PO SCH (08:53)
[2023-05-30] MEDS ORDERED: ALPRAZolam 0.25 MG TABLET PO SCH (09:00)
[2023-05-30] MEDS ORDERED: OMEGA 3 (FISH OIL) 1000 MG CAP PO SCH (09:00)
[2023-05-30] MEDS ORDERED: POTASSIUM CHLORIDE 20 MEQ TABLET PO ONE (09:00)
--- NOTE | 2023-05-30 09:00 | Discharge Summary ---
Diagnosis/Chief Complaint Date of Admission May 27, 2023 at 01:31 Date of Discharge Discharge Date: May 30, 2023 Admission Diagnosis Heart block Primary Care Ross Harvey MD Discharge Diagnosis (1) Mobitz type 2 second degree heart block Status: Acute (2) Hypertensive urgency Status: Acute (3) UTI (urinary tract infection) Status: Acute (4) Dementia Status: Acute Discharge Summary Discharge Physical Exam Allergies: Coded Allergies: No Known Drug Allergies (Unverified , 08/30/22) Vitals & I&Os Vital Signs Date Time Temp Pulse Resp B/P (MAP) Pulse Ox O2 Delivery O2 Flow Rate FiO2 05/30/23 07:52 36.1 77 16 174/77 (109) 96 Room Air General Appearance: No Apparent Distress, WD/WN Respiratory: Lungs Clear Cardiovascular: Regular Rate, Rhythm, No Murmur Neurologic/Psychiatric: Alert, Oriented x3 Hospital Course Patient was admitted to the hospital secondary to heart block had a pacemaker placed on May 27. She did well post operatively. She worked with physical therapy given new restrictions to her arm following pacemaker placement. She w as also found to have urinary tract infection which was treated with 3 days of Rocephin in the hospital. She is to continue on Keflex as postsurgical prophylaxis. She was discharged to [facility] for skilled therapy and is to follow-up with cardiology and her primary care physician Dr. Harvey. Labs (last 24 hrs) Laboratory Tests 05/30/23 05:54: White Blood Count 8.9, Red Blood Count 3.47L, Hemoglobin 11.1L, Hematocrit 34L, Mean Corpuscular Volume 97, Mean Corpuscular Hemoglobin 32, Mean Corpuscular Hemoglobin Concent 33, Red Cell Distribution Width 12.9, Platelet Count 206, Mean Platelet Volume 10.9, Immature Granulocyte % (Auto) 0, Neutrophils (%) (Auto) 70, Lymphocytes (%) (Auto) 18, Monocytes (%) (Auto) 9, Eosinophils (%) (Auto) 3, Basophils (%) (Auto) 1, Neutrophils # (Auto) 6.2, Lymphocytes # (Auto) 1.6, Monocytes # (Auto) 0.8, Eosinophils # (Auto) 0.2, Basophils # (Auto) 0.0, Immature Granulocyte # (Auto) 0.0, Sodium Level 137, Potassium Level 3.6, Chloride Level 104, Carbon Dioxide Level 25, Anion Gap 8, Blood Urea Nitrogen 6L , Creatinine 0.65, Estimat Glomerular Filtration Rate 86, BUN/Creatinine Ratio 9, Glucose Level 124H, Calcium Level 8.4L, Corrected Calcium 8.8, Phosphorus Level 2.6, Magnesium Level 1.9, Total Bilirubin 0.6, Aspartate Amino Transf (AST/SGOT) 35H, Alanine Aminotransferase (ALT/SGPT) 26, Alkaline Phosphatase 76, Total Protein 6.3L, Albumin 3.5 Microbiology 05/27/23 MRSA Screen - Final, Complete MRSA not isolated 05/26/23 Urine Culture - Preliminary, Resulted Gram Positive Kareem Patient resulted labs reviewed. Pending Labs Laboratory Tests 05/30/23 05:54: White Blood Count 8.9, Red Blood Count 3.47, Hemoglobin 11.1, Hematocrit 34, Mean Corpuscular Volume 97, Mean Corpuscular Hemoglobin 32, Mean Corpuscular Hemoglobin Concent 33, Red Cell Distribution Width 12.9, Platelet Count 206, Mean Platelet Volume 10.9, Immature Granulocyte % (Auto) 0, Neutrophils (%) (Auto) 70, Lymphocytes (%) (Auto) 18, Monocytes (%) (Auto) 9, Eosinophils (%) (Auto) 3, Basophils (%) (Auto) 1, Neutrophils # (Auto) 6.2, Lymphocytes # (Auto) 1.6, Monocytes # (Auto) 0.8, Eosinophils # (Auto) 0.2, Basophils # (Auto) 0.0, Immature Granulocyte # (Auto) 0.0, Sodium Level 137, Potassium Level 3.6, Chloride Level 104, Carbon Dioxide Level 25, Anion Gap 8, Blood Urea Nitrogen 6, Creatinine 0.65, Estimat Glomerular Filtration Rate 86, BUN/Creatinine Ratio 9, Glucose Level 124, Calcium Level 8.4, Corrected Calcium 8.8, Phosphorus Level 2.6, Magnesium Level 1.9, Total Bilirubin 0.6, Aspartate Amino Transf (AST/SGOT) 35, Alanine Aminotransferase (ALT/SGPT) 26, Alkaline Phosphatase 76, Total Protein 6.3, Albumin 3.5 Imaging: Reviewed Imaging Report Discussion & Recommendations Discharge Planning: >30 minutes discharge planning Discharge Home Medications: Active Scripts Active Reported Ventolin Hfa (Albuterol Sulfate) 90 Mcg Hfa.aer.ad 2 Puff PO Q4H PRN 1 PUFF = 90 MCG Ondansetron HCl 4 Mg Tablet 4 Mg PO Q6H PRN Levsin-Sl (Hyoscyamine Sulfate) 0.125 Mg Tab.subl 0.125 Mg SL Q6H PRN ALPRAZolam 0.25 Mg Tablet 0.25 Mg PO DAILY Xalatan (Latanoprost) 0.005 % Drops 1 Drop OU HS Biotin 1 Mg Tablet 1,000 Mcg PO DAILY Ocuvite Adult 50 Plus Softgel (Mv-Mn/Om3/Dha/Epa/Fish/Lut/Alirio) 250 Mg (90 Mg-160 Mg)-5 Mg-1 Mg Capsule 1 Each PO DAILY Fish Oil 1,000 mg Softgel ([place]-3/Dha/Epa/Fish Oil) 1,000 Mg (120 Mg-180 Mg) Capsule 1,000 Mg PO DAILY Calcium + D3 ER Tablet (Calcium Carb & Citrate/Vit D3) 600MG-12.5 Tablet.er 1 Each PO DAILY Ropinirole HCl 0.5 Mg Tablet 0.5 Mg PO HS Donepezil HCl 10 Mg Tablet 10 Mg PO HS Hydrochlorothiazide 25 Mg Tablet 25 Mg PO DAILY Pravastatin Sodium 40 Mg Tablet 40 Mg PO DAILY Lisinopril 40 Mg Tablet 40 Mg PO DAILY Memantine HCl 10 Mg Tablet 10 Mg PO BID Multivitamin 1 Each Tablet 1 Each PO DAILY Sertraline HCl 25 Mg Tablet 25 Mg PO HS Tylenol (Acetaminophen) 325 Mg Tablet 325-650 Mg PO Q4H PRN TAKES 1 TO 2 (325MG) TABS Mylanta Suspension (Al Hydrox/Mg Hydrox/Simethicone) 30 Ml Oral.susp 30 Ml PO Q4H PRN Instructions to patient/family Please see electronic discharge instructions given to patient. Copy Copies To 1: ROSS HARVEY MD, KATELYN M MD May 30, 2023 09:00
[2023-05-30] MEDS ORDERED: MTP25TSR PO (09:11)
[2023-05-30] MEDS ORDERED: NFBIOT1000 PO (09:11)
[2023-05-30] MEDS ORDERED: CEPH250C PO (09:11)
[2023-05-30] MEDS ORDERED: ONDA-105 PO (09:11)
[2023-05-30] MEDS ORDERED: ACET325T38 PO (09:11)
[2023-05-30] MEDS ORDERED: OMEG100032 PO (09:11)
[2023-05-30] MEDS ORDERED: HYDR25TA4 PO (09:11)
[2023-05-30] MEDS ORDERED: HYOS0.1283 SL (09:11)
[2023-05-30] MEDS ORDERED: ROPI0.5T37 PO (09:11)
[2023-05-30] MEDS ORDERED: CALC-794 PO (09:11)
[2023-05-30] MEDS ORDERED: SERT-412 PO (09:11)
[2023-05-30] MEDS ORDERED: MEMA10TA57 PO (09:11)
[2023-05-30] MEDS ORDERED: MAG30ORA2 PO (09:11)
[2023-05-30] MEDS ORDERED: ALBU8.5H6 PO (09:11)
[2023-05-30] MEDS ORDERED: DONE10TA41 PO (09:11)
[2023-05-30] MEDS ORDERED: AMLO-251 PO (09:11)
[2023-05-30] MEDS ORDERED: LISI40TA9 PO (09:11)
[2023-05-30] MEDS ORDERED: MV-M1CAP24 PO (09:11)
[2023-05-30] MEDS ORDERED: MULT-1136 PO (09:11)
[2023-05-30] MEDS ORDERED: LATA2.5D19 OU (09:11)
[2023-05-30] MEDS ORDERED: ALPR0.254 PO (09:11)
[2023-05-30] MEDS ORDERED: PRAV40TA2 PO (09:11)
[2023-05-30 11:59] VITALS: BP 166/71
[2023-05-30 14:35] VITALS: BP 166/71
[2023-05-30] MEDS ORDERED: SERTRALINE 50 MG TABLET PO SCH (21:00)
[2023-05-30] MEDS ORDERED: rOPINIRole 0.25 MG TABLET PO SCH (21:00)
== END 2023-05-30 14:37 | DRG 243 ==
LOC: EDUNIT# 21:45 → ER 21:46 → ICU 05-27 01:31 → 4TH 05-28 11:46
PROVIDERS: ADMIT Internal Medicine; ATTEND Internal Medicine
PROC: 0JH606Z Insertion of Pacemaker, Dual Chamber into Chest Subcutaneous Tissue and Fascia, Open Approach (ICD-10-PCS; principal; 2023-05-27)
PROC: 02H63JZ Insertion of Pacemaker Lead into Right Atrium, Percutaneous Approach (ICD-10-PCS; 2023-05-27)
PROC: 02HK3JZ Insertion of Pacemaker Lead into Right Ventricle, Percutaneous Approach (ICD-10-PCS; 2023-05-27)
PROC: B5171ZZ Fluoroscopy of Left Subclavian Vein using Low Osmolar Contrast (ICD-10-PCS; 2023-05-27)
DX: I44.1 Atrioventricular block, second degree (principal); N39.0 Urinary tract infection, site not specified; I16.0 Hypertensive urgency; F03.90 Unspecified dementia, unspecified severity, without behavioral disturbance, psychotic disturbance, mood disturbance, and anxiety; I10 Essential (primary) hypertension; Z66 Do not resuscitate; Z86.73 Personal history of transient ischemic attack (TIA), and cerebral infarction without residual deficits; R53.81 Other malaise; J44.9 Chronic obstructive pulmonary disease, unspecified; E78.00 Pure hypercholesterolemia, unspecified; M19.90 Unspecified osteoarthritis, unspecified site; G89.29 Other chronic pain; M54.9 Dorsalgia, unspecified; H40.9 Unspecified glaucoma; F41.9 Anxiety disorder, unspecified; F32.A Depression, unspecified; Z85.3 Personal history of malignant neoplasm of breast; Z90.12 Acquired absence of left breast and nipple; I65.29 Occlusion and stenosis of unspecified carotid artery
CPT/HCPCS: 33208; 36415; 51701; 70450; 71045; 71046; 75820; 80053; 81000; 83735; 84100; 84484; 85025; 85610; 85652; 85730; 86141; 87077; 87081; 87088; 93005; 93041; 93306; 96374; 96375